=== PATIENT | female | born 1985 | race Two or more races ===

== ENCOUNTER 2017-12-27 20:32 | Emergency (ER) | payer MEDICAID ==
--- NOTE | 2017-12-27 20:49 | EDPHY ---
H & P Time Seen by Provider: 12/27/17 20:48 HPI/ROS: CHIEF COMPLAINT: Lower abdominal pain HISTORY OF PRESENT ILLNESS: Patient is 32-year-old female with a history of chronic pelvic pain secondary to endometriosis presenting with 1 week of worsening pelvic pain. She states she is just finishing her period and typically she has intense pain during the entirety of her. Then it starts to taper off. She states she finished her period yesterday and the pain has persisted. She is taking Motrin and Tylenol without complete relief of pain. She denies any fever or chills or flank pain. Her period was in timing with her normal monthly. She also reports diarrhea and vomiting. She has no sick contacts. She reports a history of 5 prior laparoscopies for endometriosis. REVIEW OF SYSTEMS: Constitutional: No fever, no chills. Eyes: No discharge. ENT: No sore throat. Cardiovascular: No chest pain, no palpitations. Respiratory: No cough, no shortness of breath. Gastrointestinal: + abdominal pain, + vomiting. Genitourinary: No hematuria. Musculoskeletal: No back pain. Skin: No rashes. Neurological: No headache. Smoking Status: Never smoked Physical Exam: General Appearance: Alert and no distress. Eyes: Pupils equal and round no injection. Respiratory: Chest is nontender, lungs are clear to auscultation. Cardiac: regular rate and rhythm. Gastrointestinal: Abdomen is soft and with tenderness to the suprapubic and left adnexal region. No right lower quadrant tenderness. no masses, bowel sounds normal. Musculoskeletal: Neck is supple and nontender. Extremities have full range of motion and are nontender. Skin: No rashes or lesions. Constitutional: Initial Vital Signs Temperature (C) 36.8 C 12/27/17 20:36 Heart Rate 64 12/27/17 20:36 Respiratory Rate 16 12/27/17 20:36 Blood Pressure 113/64 12/27/17 20:36 O2 Sat (%) 97 12/27/17 20:36 O2 Delivery Mode Room Air Allergies/Adverse Reactions: ciprofloxacin [From Cipro] Allergy (Verified 12/27/17 20:38) Medical Decision Making - Diagnostics Imaging Results: Imaging Impressions Pelvic/Renal Ultrasound 12/27/17 21:02 Impression: Basically normal pelvic ultrasound for the patient's age. Findings and recommendations discussed with Messi Marino PA-C, at 10:00 p.m., on December 27, 2017. Final report concurs with initial preliminary interpretation. ED Course/Re-evaluation: 32-year-old female here with history of chronic pelvic pain secondary to endometriosis found to be afebrile with unremarkable labs and ultrasound showing no acute process. She does feel improved after IV fluids, Toradol and morphine. She was discharge with a small amount of the medication and given socket welder helper follow-up. Patient is agreeable with this plan. Differential Diagnosis: Ovarian torsion, appendicitis, UTI, uterine fibroids, ovarian cyst, diverticulitis - Data Points Laboratory Results: Laboratory Results 12/27/17 20:50 12/27/17 20:50 12/27/17 12/27/17 12/27/17 22:23 20:50 20:50 WBC RBC Hgb Hct MCV MCH MCHC RDW Plt Count MPV Neut % (Auto) Lymph % (Auto) [place] % (Auto) Eos % (Auto) Baso % (Auto) Nucleat RBC Rel Count Absolute Neuts (auto) Absolute Lymphs (auto) Absolute Monos (auto) Absolute Eos (auto) Absolute Basos (auto) Absolute Nucleated RBC Immature Gran % Immature Gran # Sodium 139 mEq/L mEq/L (135-145) Potassium 4.5 mEq/L mEq/L (3.3-5.0) Chloride 106 mEq/L mEq/L (97-110) Carbon Dioxide 26 mEq/l mEq/l (22-31) Anion Gap 7 mEq/L L mEq/L (8-16) BUN 14 mg/dL mg/dL (7-23) Creatinine 0.7 mg/dL mg/dL (0.6-1.0) Estimated GFR > 60 Glucose 88 mg/dL mg/dL (70-100) Calcium 9.5 mg/dL mg/dL (8.5-10.4) Total Bilirubin 0.2 mg/dL mg/dL (0.1-1.4) AST 22 IU/L IU/L (14-46) ALT 32 IU/L IU/L (9-52) Alkaline Phosphatase 66 IU/L IU/L (38-126) Total Protein 6.7 g/dL g/dL (6.3-8.2) Albumin 3.8 g/dL g/dL (3.5-5.0) Lipase 196 IU/L IU/L (23-300) Beta HCG, Qual NEGATIVE Urine Color COLORLESS Urine Appearance CLEAR Urine pH 6.0 (5.0-7.5) Ur Specific [place] 1.001 L (1.002-1.030) Urine Protein NEGATIVE (NEGATIVE) Urine Ketones NEGATIVE (NEGATIVE) Urine Blood NEGATIVE (NEGATIVE) Urine Nitrate NEGATIVE (NEGATIVE) Urine Bilirubin NEGATIVE (NEGATIVE) Urine Urobilinogen NEGATIVE EU EU (0.2-1.0) Ur Leukocyte Esterase NEGATIVE (NEGATIVE) Urine Glucose NEGATIVE (NEGATIVE) 12/27/17 20:50 WBC 10.71 10^3/uL H 10^3/uL (3.80-9.50) RBC 4.56 10^6/uL 10^6/uL (4.18-5.33) Hgb 13.4 g/dL g/dL (12.6-16.3) Hct 40.2 % % (38.0-47.0) MCV 88.2 fL fL (81.5-99.8) MCH 29.4 pg pg (27.9-34.1) MCHC 33.3 g/dL g/dL (32.4-36.7) RDW 14.0 % % (11.5-15.2) Plt Count 332 10^3/uL 10^3/uL (150-400) MPV 10.2 fL fL (8.7-11.7) Neut % (Auto) 54.1 % % (39.3-74.2) Lymph % (Auto) 34.2 % % (15.0-45.0) [place] % (Auto) 7.8 % % (4.5-13.0) Eos % (Auto) 3.0 % % (0.6-7.6) Baso % (Auto) 0.6 % % (0.3-1.7) Nucleat RBC Rel Count 0.0 % % (0.0-0.2) Absolute Neuts (auto) 5.80 10^3/uL 10^3/uL (1.70-6.50) Absolute Lymphs (auto) 3.66 10^3/uL H 10^3/uL (1.00-3.00) Absolute Monos (auto) 0.84 10^3/uL H 10^3/uL (0.30-0.80) Absolute Eos (auto) 0.32 10^3/uL 10^3/uL (0.03-0.40) Absolute Basos (auto) 0.06 10^3/uL 10^3/uL (0.02-0.10) Absolute Nucleated RBC 0.00 10^3/uL 10^3/uL (0-0.01) Immature Gran % 0.3 % % (0.0-1.1) Immature Gran # 0.03 10^3/uL 10^3/uL (0.00-0.10) Sodium Potassium Chloride Carbon Dioxide Anion Gap BUN Creatinine Estimated GFR Glucose Calcium Total Bilirubin AST ALT Alkaline Phosphatase Total Protein Albumin Lipase Beta HCG, Qual Urine Color Urine Appearance Urine pH Ur Specific [place] Urine Protein Urine Ketones Urine Blood Urine Nitrate Urine Bilirubin Urine Urobilinogen Ur Leukocyte Esterase Urine Glucose Medications Given: Discontinued Medications Hydrocodone Bitart/Acetaminophen ([place] 5/325mg Prepack#6) 1 btl TAKEHOME EDNOW ONE Stop: 12/27/17 23:41 Last Admin: 12/27/17 23:47 Dose: 1 btl Sodium Chloride (Ns) 1,000 mls @ 0 mls/hr IV EDNOW ONE; Wide Open PRN Reason: Protocol Stop: 12/27/17 21:03 Last Admin: 12/27/17 21:07 Dose: 1,000 mls Ketorolac Tromethamine (Toradol) 15 mg IVP EDNOW ONE Stop: 12/27/17 21:04 Last Admin: 12/27/17 21:10 Dose: 15 mg Morphine Sulfate (Morphine) 4 mg IVP Q1H PRN PRN Reason: Pain, Severe Unable to Take PO Last Admin: 12/27/17 21:10 Dose: 4 mg Promethazine HCl (Phenergan) 12.5 mg IVP ONCE ONE Stop: 12/27/17 21:04 Last Admin: 12/27/17 21:07 Dose: 12.5 mg Departure - Departure Disposition: Home, Routine, Self-Care Clinical Impression: Endometriosis Condition: Good Instructions: Hydrocodone/Acetaminophen (By mouth), Narcotic-Analgesic/ Acetaminophen (By mouth), Endometriosis (ED), Pelvic Pain in Women (ED) Additional Instructions: The source of her pain is unclear the this is likely exacerbation of her chronic pelvic pain and endometriosis. Giving him the number for socket welder helper. Please call them tomorrow morning for follow-up within the next 3-5 days. Return to the ER for fever any worsening symptoms. Referrals: NONE *PRIMARY CARE P,. [Primary Care Provider] - As per Instructions Heather Samuels MD [Medical Doctor] - As per Instructions
[2017-12-27] MEDS ORDERED: NS 1,000 ML IV ONE (21:02)
[2017-12-27] MEDS ORDERED: KETOROLAC 15 MG/1 ML SDV IVP ONE (21:03)
[2017-12-27] MEDS ORDERED: PROMETHAZINE HCL 25 MG/ML INJ IVP ONE (21:03)
[2017-12-27 21:06] LABS: PLATELET COUNT 332 10^3/uL (150-400)
[2017-12-27] MEDS ORDERED: HYDROCOD/APAP 5/325 PREPACK#6 BTL TAKEHOME ONE (23:40)
[2017-12-27 23:53] VITALS: BP 111/78
== END 2017-12-27 23:53 | disposition home or self-care (01) ==
DX: N80.9 Endometriosis, unspecified (principal); E86.9 Volume depletion, unspecified
CPT/HCPCS: 96374; J1885; J2270; J2550

== ENCOUNTER 2018-01-15 16:13 | Emergency (ER) | payer MEDICAID ==
--- NOTE | 2018-01-15 16:40 | EDPHY ---
H & P Time Seen by Provider: 01/15/18 16:33 HPI/ROS: CHIEF COMPLAINT: Lower abdominal pain HISTORY OF PRESENT ILLNESS: Patient is a 32-year-old female with a history of endometriosis and multiple previous pelvic surgery who presents emergency department with severe lower pelvic pain. Patient states that she has been gradually having worse. Symptoms each month. Her period started today and she has increasing suprapubic pain. She denies fevers or chills. No nausea or vomiting. Patient has had mild dysuria and frequency. The patient reports this is similar to her previous episodes of endometriosis. Patient also reports that she has previously had an ovarian torsion. REVIEW OF SYSTEMS: 10 systems were reveiwed and are negative with the exception of the elements mentioned in the history of present illness. Past Medical/Surgical History: Includes ovarian torsion, endometriosis, urinary tract infection, uterine fibroids, ovarian cyst, diverticulitis Past surgical history: Patient has multiple laparoscopic procedures. Patient denies having a previous appendicitis or having her appendix removed. This was noted on a previous record. Social history: Patient does not smoke Smoking Status: Never smoked Physical Exam: Vitals noted GENERAL: Well-appearing, in no acute distress, alert. HEENT: Eyes normal to inspection, normal pharynx, no signs of dehydration. NECK: Normal, supple. RESPIRATORY: Clear to auscultation bilaterally, no rales, rhonchi or wheezing. CVS: Regular rate and rhythm, no rubs, murmurs, or gallops. ABDOMEN: Soft, suprapubic tenderness to palpation with no rebound or guarding. Left lower quadrant tenderness palpation with no rebound or guarding. Nondistended, no organomegaly. BACK: Normal to inspection, no CVA tenderness. SKIN: Normal color, no rash, warm, dry. No pallor. EXTREMITIES: No pedal edema, no calf tenderness, no joint swelling. NEURO/PSYCH: Alert and oriented, normal mood and affect, normal motor sensory exam. Constitutional: Initial Vital Signs Temperature (C) 36.6 C 01/15/18 16:18 Heart Rate 64 01/15/18 16:18 Respiratory Rate 16 01/15/18 16:18 Blood Pressure 120/49 L 01/15/18 16:18 O2 Sat (%) 100 01/15/18 16:18 O2 Delivery Mode Room Air Allergies/Adverse Reactions: aloe Allergy (Verified 01/15/18 16:17) ciprofloxacin [From Cipro] Allergy (Verified 01/15/18 16:17) gluten Allergy (Verified 01/15/18 16:17) Home Medications: Medication Instructions Recorded Azithromycin 01/15/18 Flovent 44 MCG Hfa MDI (*) 01/15/18 Hydrocodone/APAP 5/325 [[place] 1 - 2 tab PO Q4 #11 tab 01/15/18 5/325 (RX)] Proair Hfa 01/15/18 Promethazine HCl [Phenergan 25mg 25 mg PO Q6 #7 tab 01/15/18 (*)] Proventil Neb 01/15/18 Medical Decision Making - Diagnostics Imaging Results: Imaging Impressions Pelvic/Renal Ultrasound 01/15/18 17:05 Impression: There is no sonographic explanation for the patient's pelvic pain. Findings were discussed with MIGUEL VAZQUEZ MD at 18:29, on 01/15/2018. Abdomen/Pelvis CT 01/15/18 18:38 Impression: No acute abdominopelvic process. Findings and recommendations discussed with MIGUEL VAZQUEZ at 1908 hour, . ED Course/Re-evaluation: In the emergency department I discussed possible etiologies with the patient. I answered all her questions. IV was placed. Patient was given Dilaudid 0.5 mg IV for pain. She is given Zofran 4 mg IV for pain. Patient was given 30 mg toradol IV. Patient was given repeat dose of Dilaudid. I rechecked the patient. She stated her pain had improved but she was still complaining of nausea. Ultrasound: Normal flow to both ovaries. Small right-sided ovarian cyst. No other abnormality noted. Patient was noted to have blood in her urine. She is on her menses. However, the patient still has abdominal pain. Because of this CT scan was ordered. Abdominal pelvic CT: Please refer the dictated report. No acute disease noted. Discussed the results with the patient. I answered all her questions. She was feeling better. She was given warnings prior to leaving. She will return with worsening symptoms. Differential Diagnosis: My differential includes but is not limited to ovarian cyst, ovarian torsion, , ectopic , endometriosis, appendicitis, small-bowel obstruction, perforation, diverticulitis, urinary tract infection, pyelonephritis - Data Points Laboratory Results: Laboratory Results 01/15/18 17:20 01/15/18 17:20 01/15/18 01/15/18 01/15/18 17:20 17:20 17:20 WBC 12.79 10^3/uL H 10^3/uL (3.80-9.50) RBC 4.86 10^6/uL 10^6/uL (4.18-5.33) Hgb 14.2 g/dL g/dL (12.6-16.3) Hct 42.1 % % (38.0-47.0) MCV 86.6 fL fL (81.5-99.8) MCH 29.2 pg pg (27.9-34.1) MCHC 33.7 g/dL g/dL (32.4-36.7) RDW 13.5 % % (11.5-15.2) Plt Count 332 10^3/uL 10^3/uL (150-400) MPV 10.8 fL fL (8.7-11.7) Neut % (Auto) 56.3 % % (39.3-74.2) Lymph % (Auto) 33.5 % % (15.0-45.0) [place] % (Auto) 7.3 % % (4.5-13.0) Eos % (Auto) 2.2 % % (0.6-7.6) Baso % (Auto) 0.5 % % (0.3-1.7) Nucleat RBC Rel Count 0.0 % % (0.0-0.2) Absolute Neuts (auto) 7.21 10^3/uL H 10^3/uL (1.70-6.50) Absolute Lymphs (auto) 4.28 10^3/uL H 10^3/uL (1.00-3.00) Absolute Monos (auto) 0.93 10^3/uL H 10^3/uL (0.30-0.80) Absolute Eos (auto) 0.28 10^3/uL 10^3/uL (0.03-0.40) Absolute Basos (auto) 0.07 10^3/uL 10^3/uL (0.02-0.10) Absolute Nucleated RBC 0.00 10^3/uL 10^3/uL (0-0.01) Immature Gran % 0.2 % % (0.0-1.1) Immature Gran # 0.02 10^3/uL 10^3/uL (0.00-0.10) Sodium 142 mEq/L mEq/L (135-145) Potassium 3.6 mEq/L mEq/L (3.3-5.0) Chloride 107 mEq/L mEq/L (97-110) Carbon Dioxide 25 mEq/l mEq/l (22-31) Anion Gap 10 mEq/L mEq/L (6-14) BUN 8 mg/dL mg/dL (7-23) Creatinine 0.7 mg/dL mg/dL (0.6-1.0) Estimated GFR > 60 Glucose 76 mg/dL mg/dL (70-100) Calcium 9.9 mg/dL mg/dL (8.5-10.4) Beta HCG, Qual NEGATIVE Urine Color Urine Appearance Urine pH Ur Specific [place] Urine Protein Urine Ketones Urine Blood Urine Nitrate Urine Bilirubin Urine Urobilinogen Ur Leukocyte Esterase Urine RBC Urine WBC Ur Epithelial Cells Urine Mucus Urine Glucose 01/15/18 16:25 WBC RBC Hgb Hct MCV MCH MCHC RDW Plt Count MPV Neut % (Auto) Lymph % (Auto) [place] % (Auto) Eos % (Auto) Baso % (Auto) Nucleat RBC Rel Count Absolute Neuts (auto) Absolute Lymphs (auto) Absolute Monos (auto) Absolute Eos (auto) Absolute Basos (auto) Absolute Nucleated RBC Immature Gran % Immature Gran # Sodium Potassium Chloride Carbon Dioxide Anion Gap BUN Creatinine Estimated GFR Glucose Calcium Beta HCG, Qual Urine Color PALE YELLOW Urine Appearance CLEAR Urine pH 6.0 (5.0-7.5) Ur Specific [place] 1.006 (1.002-1.030) Urine Protein NEGATIVE (NEGATIVE) Urine Ketones TRACE H (NEGATIVE) Urine Blood 2+ H (NEGATIVE) Urine Nitrate NEGATIVE (NEGATIVE) Urine Bilirubin NEGATIVE (NEGATIVE) Urine Urobilinogen NEGATIVE EU EU (0.2-1.0) Ur Leukocyte Esterase NEGATIVE (NEGATIVE) Urine RBC 25-50 /hpf H /hpf (0-3) Urine WBC 3-5 /hpf H /hpf (0-3) Ur Epithelial Cells TRACE /lpf /lpf (NONE-1+) Urine Mucus TRACE /lpf /lpf (NONE-1+) Urine Glucose NEGATIVE (NEGATIVE) Medications Given: Discontinued Medications Hydromorphone HCl (Dilaudid) 5 mg IVP EDNOW ONE Stop: 01/15/18 17:07 Last Admin: 01/15/18 18:22 Dose: Not Given Hydromorphone HCl (Dilaudid) 0.5 mg IVP EDNOW ONE Stop: 01/15/18 18:22 Last Admin: 01/15/18 17:30 Dose: 0.5 mg Hydromorphone HCl (Dilaudid) 0.5 mg IVP EDNOW ONE Stop: 01/15/18 18:24 Last Admin: 01/15/18 18:15 Dose: 0.5 mg Sodium Chloride (Ns) 1,000 mls @ 0 mls/hr IV ONCE ONE; Wide Open PRN Reason: Protocol Stop: 01/15/18 17:06 Last Admin: 01/15/18 17:30 Dose: 1,000 mls Ketorolac Tromethamine (Toradol) 30 mg IVP EDNOW ONE Stop: 01/15/18 17:06 Last Admin: 01/15/18 17:30 Dose: 30 mg Ondansetron HCl (Zofran) 4 mg IVP EDNOW ONE Stop: 01/15/18 17:06 Last Admin: 01/15/18 17:30 Dose: 4 mg Ondansetron HCl (Zofran) 4 mg IVP EDNOW ONE Stop: 01/15/18 18:39 Last Admin: 01/15/18 18:42 Dose: 4 mg Departure - Departure Disposition: Home, Routine, Self-Care Clinical Impression: Abdominal pain Qualifiers: Abdominal location: lower abdomen, unspecified Qualified Code(s): R10.30 - Lower abdominal pain, unspecified Condition: Good Instructions: Acute Abdominal Pain (ED) Additional Instructions: Return with increasing pain, vomiting, fever, or any other concerns. Referrals: Thais Britt MD [Medical Doctor] - 5-7 days, call for appt. Prescriptions: Hydrocodone/APAP 5/325 [[place] 5/325 (RX)] 1 - 2 tab PO Q4 #11 tab Promethazine HCl [Phenergan 25mg (*)] 25 mg PO Q6 #7 tab
[2018-01-15] MEDS ORDERED: KETOROLAC 30 MG/1 ML SDV IVP ONE (17:05)
[2018-01-15] MEDS ORDERED: NS 1,000 ML IV ONE (17:05)
[2018-01-15] MEDS ORDERED: ONDANSETRON 4 MG/2 ML VIAL IVP ONE ×2 (17:05→18:38)
[2018-01-15] MEDS ORDERED: HYDROmorphONE/DILAUDID 2 MG/ML INJ IVP ONE ×3 (17:06→18:23)
[2018-01-15] MEDS ORDERED: HYDROmorphONE/DILAUDID 1 MG/ML INJ ONE ×2 (17:11→18:15)
[2018-01-15 17:34] LABS: PLATELET COUNT 332 10^3/uL (150-400)
[2018-01-15] MEDS ORDERED: ONDANSETRON 4 MG/2 ML VIAL ONE (20:06)
[2018-01-15] MEDS ORDERED: PROMETHAZINE 25 MG PREPACK #4 BTL TAKEHOME ONE (20:17)
[2018-01-15] MEDS ORDERED: HYDROCOD/APAP 5/325 PREPACK#6 BTL TAKEHOME ONE (20:17)
[2018-01-15 20:51] VITALS: BP 128/72
== END 2018-01-15 20:53 | disposition home or self-care (01) ==
DX: R10.2 Pelvic and perineal pain (principal); N83.201 Unspecified ovarian cyst, right side; E86.9 Volume depletion, unspecified; Z87.42 Personal history of other diseases of the female genital tract
CPT/HCPCS: 96374; J1170; J1885; J2405

== ENCOUNTER 2018-03-14 15:16 | Emergency (ER) | payer MEDICAID ==
[2018-03-14] MEDS ORDERED: HALOPERIDOL LACT 5 MG/ML INJ IVP ONE (16:55)
[2018-03-14] MEDS ORDERED: NS 1,000 ML IV ONE ×2 (16:55)
--- NOTE | 2018-03-14 16:55 | EDPHY ---
H & P Stated Complaint: generalized abd pain/hx chronic pain/endometriosis Time Seen by Provider: 03/14/18 16:47 HPI/ROS: HPI: This is a 32-year-old female who presents with Chief Complaint: generalized abd pain/hx chronic pain/endometriosis Location: pelvic Quality: pain Duration: 2-3 days Signs and Symptoms: no fever,+ nausea, no vomiting, no hematemesis, no blood in stool, no abdominal bloating, no diarrhea, no back pain, no urinary symptoms, no vaginal discharge, no indigestion, no chest pain, no shortness of breath Timing: Acute on chronic Severity: 01/09 Context: Patient has a history of endometriosis, followed by Dr. Farhat Contreras, with planned laparoscopic surgery May 01 presents with acute on chronic lower pelvic pain that started on with her menses. She reports that she had normal blood flow and her. lasted from to Sunday. Normally she has to take [place] 5 mg as well as Dilaudid 2 mg company by Phenergan to control her symptoms but is not helping over the last 2-3 days. She reports that she gets nauseous when she takes the medications. She denies any urinary symptoms, fever, back pain. She reports that this pain is similar to her prior occurrences. She called her OBGYN who is full today and is not in the office on Sunday. She has a few more pain medication pills at home but does admit that she has used significantly more this month in the last 2 months. LMP 1-7 days ago. Modifying Factors: See above Comment: ROS: A comprehensive 10 system review of systems is otherwise negative aside from elements mentioned in the history of present illness. MEDICAL/SURGICAL/SOCIAL HISTORY: Medical history: endometriosis, Migraines, RAD Surgical history: Denies Social history: . Never smoked. Family history noncontributory. CONSTITUTIONAL: Tearful, nontoxic-appearing, moderate distress, female , awake and alert HEENT: Atraumatic and normocephalic, PERRL, EOMI. Nares patent; no rhinorrhea; no nasal mucosal edema. Tympanic membranes clear. Oropharynx clear, no exudate and moist pink mucosa. Airway patent. No lymphadenopathy. No meningismus. Cardiovascular: Normal S1/S2, regular rate, regular rhythm, without murmur rub or gallop. PULMONARY/CHEST: Symmetrical and nontender. Clear to auscultation bilaterally. Good air movement. No accessory muscle usage. ABDOMEN: Soft, nondistended, moderate generalized lower abdominal reproducible tenderness, no rebound, no guarding, no peritoneal signs, no masses or organomegaly. No CVAT. Bowel sounds heard x4 quadrants EXTREMITIES: 2/2 pulses, strength 5/5, no deformities, no clubbing, no cyanosis or edema. NEUROLOGICAL: no focal neuro deficits. GCS 15. SKIN: Warm and dry, no erythema. no rash. Good capillary refill. Source: Patient, Old records Exam Limitations: No limitations - Personal History LMP (Females 10-55): 1-7 Days Ago Current Tetanus Diphtheria and Acellular Pertussis (TDAP): Yes Tetanus Vaccine Date: 2017 - Medical/Surgical History Hx Asthma: Yes Hx Chronic Respiratory Disease: No Hx Diabetes: No Hx Cardiac Disease: No Hx Renal Disease: No Hx Cirrhosis: No Hx Alcoholism: No Hx HIV/AIDS: No Hx Splenectomy or Spleen Trauma: No Other PMH: endometriosis Migraines RAD - Social History Smoking Status: Never smoked Constitutional: Initial Vital Signs Temperature (C) 36.7 C 03/14/18 15:31 Heart Rate 73 03/14/18 15:31 Respiratory Rate 16 03/14/18 15:31 Blood Pressure 121/89 H 03/14/18 15:31 O2 Sat (%) 98 03/14/18 15:31 O2 Delivery Mode Room Air Allergies/Adverse Reactions: aloe Allergy (Verified 03/14/18 15:30) ciprofloxacin [From Cipro] Allergy (Verified 03/14/18 15:30) gluten Allergy (Verified 03/14/18 15:30) ondansetron [From Zofran] Allergy (Verified 03/14/18 15:31) Home Medications: Medication Instructions Recorded Flovent 44 MCG Hfa MDI (*) 01/15/18 Hydrocodone/APAP 5/325 [[place] 1 - 2 tab PO Q4 #11 tab 01/15/18 5/325 (RX)] Proair Hfa 01/15/18 Promethazine HCl [Phenergan 25mg 25 mg PO Q6 #7 tab 01/15/18 (*)] Proventil Neb 01/15/18 Dilaudid 03/14/18 Vicodin 5-300 mg Tablet 03/14/18 Medical Decision Making - Diagnostics Imaging Results: Imaging Impressions Pelvic/Renal Ultrasound 03/14/18 16:56 Impression: No visible etiology for the patient's pain. Findings discussed with Galilea Osuna on 03/14/2018 at 17:58. ED Course/Re-evaluation: Vital signs reviewed and stable upon arrival. No systemic signs. IV access and laboratory studies along with pelvic ultrasound or urinalysis ordered Chart review shows that CT abdomen and pelvis scan was performed on 01/15/2018 was essentially unremarkable. Patient was given 2 L normal saline, IV Haldol 2.5 mg, IV Benadryl 25 mg Urinalysis is unremarkable. 1759: Called by radiologist, Dr. Chandra, who advises that pelvic ultrasound shows no ovarian torsion, no ectopic , no fibroids, no free fluid, there is good blood flow to both ovaries. 180: Notified by RN that pain has only improved one point to 9/10. Lidocaine drip ordered 1812: Labs reviewed. No signs of leukocytosis/anemia/platelet dysfunction/MARC/ electrolyte imbalance/. 1840: Patient ambulating to the bathroom without assistance or difficulty. 1940: Reassessed patient who reports complete relief of pain with lidocaine drip. Abdomen is soft and nontender. Reports that she does not have enough pain medications to make it through the weekend. I advised her that she can call her OBGYN who manages her chronic pain from endometriosis office tomorrow. She is able to be seen by her OBGYN on Sunday. This patient was seen under the supervision of my secondary supervising physician. I evaluated care for this patient independently. Discussed this patient with Dr. Reaves who did not see the patient. Differential Diagnosis: Abdominal pain in a female including but not limited to ovarian cyst, pelvic inflammatory disease, ovarian torsion, urinary tract infection, and appendicitis. - Data Points Laboratory Results: Laboratory Results 03/14/18 17:23 03/14/18 17:23 03/14/18 03/14/18 03/14/18 17:23 17:23 17:23 WBC 10.35 10^3/uL H 10^3/uL (3.80-9.50) RBC 4.33 10^6/uL 10^6/uL (4.18-5.33) Hgb 12.6 g/dL g/dL (12.6-16.3) Hct 37.8 % L % (38.0-47.0) MCV 87.3 fL fL (81.5-99.8) MCH 29.1 pg pg (27.9-34.1) MCHC 33.3 g/dL g/dL (32.4-36.7) RDW 14.8 % % (11.5-15.2) Plt Count 323 10^3/uL 10^3/uL (150-400) MPV 10.4 fL fL (8.7-11.7) Neut % (Auto) 62.5 % % (39.3-74.2) Lymph % (Auto) 25.5 % % (15.0-45.0) [place] % (Auto) 8.0 % % (4.5-13.0) Eos % (Auto) 3.2 % % (0.6-7.6) Baso % (Auto) 0.5 % % (0.3-1.7) Nucleat RBC Rel Count 0.0 % % (0.0-0.2) Absolute Neuts (auto) 6.47 10^3/uL 10^3/uL (1.70-6.50) Absolute Lymphs (auto) 2.64 10^3/uL 10^3/uL (1.00-3.00) Absolute Monos (auto) 0.83 10^3/uL H 10^3/uL (0.30-0.80) Absolute Eos (auto) 0.33 10^3/uL 10^3/uL (0.03-0.40) Absolute Basos (auto) 0.05 10^3/uL 10^3/uL (0.02-0.10) Absolute Nucleated RBC 0.00 10^3/uL 10^3/uL (0-0.01) Immature Gran % 0.3 % % (0.0-1.1) Immature Gran # 0.03 10^3/uL 10^3/uL (0.00-0.10) Sodium 140 mEq/L mEq/L (135-145) Potassium 4.3 mEq/L mEq/L (3.5-5.2) Chloride 108 mEq/L mEq/L (97-110) Carbon Dioxide 23 mEq/l mEq/l (22-31) Anion Gap 9 mEq/L mEq/L (6-14) BUN 13 mg/dL mg/dL (7-23) Creatinine 0.6 mg/dL mg/dL (0.6-1.0) Estimated GFR > 60 Glucose 83 mg/dL mg/dL (70-100) Calcium 9.1 mg/dL mg/dL (8.5-10.4) Beta HCG, Qual NEGATIVE Urine Color Urine Appearance Urine pH Ur Specific [place] Urine Protein Urine Ketones Urine Blood Urine Nitrate Urine Bilirubin Urine Urobilinogen Ur Leukocyte Esterase Urine Glucose 03/14/18 17:10 WBC RBC Hgb Hct MCV MCH MCHC RDW Plt Count MPV Neut % (Auto) Lymph % (Auto) [place] % (Auto) Eos % (Auto) Baso % (Auto) Nucleat RBC Rel Count Absolute Neuts (auto) Absolute Lymphs (auto) Absolute Monos (auto) Absolute Eos (auto) Absolute Basos (auto) Absolute Nucleated RBC Immature Gran % Immature Gran # Sodium Potassium Chloride Carbon Dioxide Anion Gap BUN Creatinine Estimated GFR Glucose Calcium Beta HCG, Qual Urine Color YELLOW Urine Appearance HAZY Urine pH 7.0 (5.0-7.5) Ur Specific [place] 1.006 (1.002-1.030) Urine Protein NEGATIVE (NEGATIVE) Urine Ketones NEGATIVE (NEGATIVE) Urine Blood NEGATIVE (NEGATIVE) Urine Nitrate NEGATIVE (NEGATIVE) Urine Bilirubin NEGATIVE (NEGATIVE) Urine Urobilinogen NEGATIVE EU EU (0.2-1.0) Ur Leukocyte Esterase NEGATIVE (NEGATIVE) Urine Glucose NEGATIVE (NEGATIVE) Medications Given: Discontinued Medications Diphenhydramine HCl (Benadryl Injection) 25 mg IVP EDNOW ONE Stop: 03/14/18 16:56 Last Admin: 03/14/18 17:27 Dose: 25 mg Haloperidol Lactate (Haldol Injection) 2.5 mg IVP EDNOW ONE Stop: 03/14/18 16:56 Last Admin: 03/14/18 17:26 Dose: 2.5 mg Sodium Chloride (Ns) 1,000 mls @ 0 mls/hr IV ONCE ONE; Wide Open PRN Reason: Protocol Stop: 03/14/18 16:56 Last Admin: 03/14/18 17:26 Dose: 1,000 mls Sodium Chloride (Ns) 1,000 mls @ 0 mls/hr IV ONCE ONE; Wide Open PRN Reason: Protocol Stop: 03/14/18 16:56 Last Admin: 03/14/18 17:28 Dose: 1,000 mls Lidocaine HCl 100 mg/ Sodium (Chloride) 110 mls @ 600 mls/hr IV EDNOW ONE Stop: 03/14/18 18:16 Last Admin: 03/14/18 18:41 Dose: 110 mls Departure - Departure Disposition: Home, Routine, Self-Care Clinical Impression: Chronic pelvic pain in female, Endometriosis Condition: Good Instructions: Endometriosis (ED), Pelvic Pain in Women (ED), Laparoscopic Hysterectomy (DC) Additional Instructions: Consume a minimum of 8-10 glasses of water or electrolyte fluid replacement drinks that include Gatorade, Powerade, Pedialyte. Eat a bland diet for the next 48 hours and then slowly advance as tolerated. Take pain medications as prescribed by Dr. Contreras. Please call Dr. Contreras's office tomorrow to discuss refill of pain medications an appointment to be seen within the next 3-5 days. Referrals: Keo Contreras MD [Medical Doctor] - As per Instructions Stand Alone Forms: Work Excuse
[2018-03-14 17:42] LABS: PLATELET COUNT 323 10^3/uL (150-400)
[2018-03-14] MEDS ORDERED: LIDOCAINE 1% 100 MG in NS 100 ML IV ONE (18:06)
[2018-03-14 19:58] VITALS: BP 128/76
== END 2018-03-14 19:58 | disposition home or self-care (01) ==
DX: R10.2 Pelvic and perineal pain (principal); N80.9 Endometriosis, unspecified; E86.9 Volume depletion, unspecified
CPT/HCPCS: 96374; J1200; J1630

== ENCOUNTER 2018-05-01 05:35 | Observation (INO) | payer MEDICAID ==
[2018-05-01] MEDS ORDERED: PHENAZOPYRIDINE HCL 200 MG TAB PO ONE (05:59)
[2018-05-01] MEDS ORDERED: ACETAMINOPHEN 500 MG TAB PO ONE (05:59)
[2018-05-01] MEDS ORDERED: ceFAZolin 2 GM/DEXTROSE 100 ML IV ONE (05:59)
[2018-05-01] MEDS ORDERED: GABAPENTIN 300 MG CAP PO ONE (05:59)
[2018-05-01] MEDS ORDERED: LR 1,000 ML IV ONE (06:02)
[2018-05-01] MEDS ORDERED: MIDAZOLAM 2 MG/2 ML VIAL IVP ONE ×2 (06:44→11:02)
--- NOTE | 2018-05-01 06:44 | PDANEPAE ---
ANE Past Medical History - Cardiovascular History Hx Hypertension: No Hx Arrhythmias: No Hx Chest Pain: No Hx Coronary Artery / Peripheral Vascular Disease: No Hx CHF / Valvular Disease: No Hx Palpitations: No Cardiovascular History Comment: BP runs low 119-120/? - Pulmonary History Hx COPD: No Hx Asthma/Reactive Airway Disease: Yes Hx Recent Upper Respiratory Infection: No Hx Oxygen in Use at Home: No Hx Sleep Apnea: No Sleep Apnea Screening Result - Last Documented: Negative - Neurologic History Hx Cerebrovascular Accident: No Hx Seizures: No Hx Dementia: No - Endocrine History Hx Diabetes: No Hypothyroid: No Hyperthyroid: No Obesity: no Endocrine History Comment: overweight - Renal History Hx Renal Disorders: No - Liver History Hx Hepatic Disorders: No - Neurological & Psychiatric Hx Hx Neurological and Psychiatric Disorders: Yes Neurological / Psychiatric History Comment: numbness to feet and toes. fingertip. migraines. depression/anxiety - Cancer History Hx Cancer: No - Congenital Disorder History Hx Congenital Disorders: Yes Congenital History Comment: type 2 DM - GI History GERD: mild Hx Gastrointestinal Disorders: Yes Gastrointestinal History Comment: acid reflux, celiac disease. constipation/ diarrhea - Other Health History Other Health History: mild nasal congestion. endometrosis - Chronic Pain History Chronic Pain: Yes (bilt hips) - Surgical History Prior Surgeries: endometrosis excision x4 ANE Review of Systems Review of Systems: - Exercise capacity Exercise capacity: <4 METS METS (RN): 3 METS ANE Patient History - Allergies Allergies/Adverse Reactions: aloe Allergy (Verified 04/12/18 12:23) Other-Enter Comments ciprofloxacin [From Cipro] Allergy (Verified 04/12/18 12:23) Other-Enter Comments gluten Allergy (Verified 04/12/18 12:23) Other-Enter Comments Iodinated Contrast- Oral and IV Dye Allergy (Verified 05/01/18 07:02) ondansetron [From Zofran] Allergy (Verified 04/12/18 12:23) Other-Enter Comments - Home Medications Home Medications: Flovent 44 MCG Hfa MDI (*) 01/15/18 [Last Taken Unknown] Proair Hfa 01/15/18 [Last Taken 1 Week Ago ~04/24/18] Proventil Neb 01/15/18 [Last Taken 05/01/18 04:00] Dilaudid 03/14/18 [Last Taken 05/01/18 04:30] Vicodin 5-300 mg Tablet 03/14/18 [Last Taken 05/01/18 04:30] Hydrocodone/APAP 5/325 [[place] 5/325 (RX)] 04/12/18 [Last Taken 05/01/18 04:30] Promethazine HCl [Phenergan 25mg (*)] 04/12/18 [Last Taken 05/01/18 04:30] Acetaminophen 1,000 mg PO 05/01/18 [Last Taken 05/01/18 04:30] Docusate Sodium [Colace Clear] 50 mg PO 05/01/18 [Last Taken 05/01/18 04:30] Naproxen 1,300 mg PO Q4 05/01/18 [Last Taken 04/30/18] - NPO status NPO Since - Liquids (Date): 05/01/18 NPO Since - Liquids (Time): 04:50 NPO Since - Solids (Date): 04/30/18 NPO Since - Solids (Time): 22:30 - Anes Hx Anes Hx: post operative nausea and vomiting - Smoking Hx Smoking Status: Former smoker Marijuana use: No - Alcohol Use Alcohol Use: Occasionally - Family Anes Hx Family Anes Hx: neg - N/A Family Hx Anesthesia Complications: none ANE Labs/Vital Signs - Labs Result Diagrams: 05/01/18 06:35 - Vital Signs Blood Pressure: 127/84 Heart Rate: 69 Respiratory Rate: 14 O2 Sat (%): 98 Height: 165.1 cm Weight: 78.471 kg ANE Physical Exam - Airway Neck exam: FROM Mallampati Score: Class 2 Mouth exam: normal dental/mouth exam - Pulmonary Pulmonary: no respiratory distress, no rales or rhonchi, clear to auscultation - Cardiovascular Cardiovascular: regular rate and rhythym, no murmur, rub, or gallop - ASA Status ASA Status: II ANE Anesthesia Plan Anesthesia Plan: general endotracheal anesthesia Total IV Anesthesia: No
[2018-05-01 06:53] LABS: PLATELET COUNT 382 10^3/uL (150-400)
--- NOTE | 2018-05-01 07:05 | PDHPUP ---
History & Physical Update H&P update statement: This history and physical update is based on an assessment of the patient which was completed after admission or registration (within 24 hours), but prior to the surgery/procedure. H&P update: H&P reviewed & patient examined, no change in patient's condition since H&P completed
[2018-05-01] MEDS ORDERED: SCOPOLAMINE HYDROBROMIDE 1 MG/3 DAYS PATCH TD ONE (07:07)
[2018-05-01] MEDS ORDERED: fentaNYL 100 MCG/2 ML INJ ONE ×2 (07:15→09:35)
[2018-05-01] MEDS ORDERED: PROPOFOL 200 MG/20 ML VIAL ONE (07:15)
[2018-05-01] MEDS ORDERED: REMIFENTANIL HCL 1 MG VIAL ONE ×2 (07:15→08:50)
[2018-05-01] MEDS ORDERED: PROPOFOL/EMULSION 500 MG/50 ML BOTTLE IV ONE ×2 (07:15→08:50)
[2018-05-01] MEDS ORDERED: KETOROLAC 30 MG/1 ML SDV ONE (07:16)
[2018-05-01] MEDS ORDERED: ROCURONIUM 50 MG/5 ML VIAL ONE (07:16)
[2018-05-01] MEDS ORDERED: LIDOCAINE 2% 5 ML SDV ONE (07:16)
[2018-05-01] MEDS ORDERED: DEXAMETHASONE 4 MG/ML VIAL ONE (07:16)
[2018-05-01] MEDS ORDERED: ONDANSETRON 4 MG/2 ML VIAL ONE (07:16)
[2018-05-01] MEDS ORDERED: RANITIDINE 50 MG/2 ML VIAL ONE (07:18)
[2018-05-01] MEDS ORDERED: PHENYLEPHRINE HCL 100 MCG/ML SYR ONE (07:44)
[2018-05-01] MEDS ORDERED: HYDROCODONE/APAP 5/325 TAB PO PRN ×2 (07:48→13:34)
[2018-05-01] MEDS ORDERED: LR 500 ML IV PRN (07:48)
[2018-05-01] MEDS ORDERED: ACETAMINOPHEN 500 MG TAB PO PRN (07:48)
[2018-05-01] MEDS ORDERED: PHENYLEPHRINE HCL 100 MCG/ML SYR IVP PRN (07:48)
[2018-05-01] MEDS ORDERED: ONDANSETRON 4 MG/2 ML VIAL IVP PRN ×2 (07:48→13:35)
[2018-05-01] MEDS ORDERED: NALOXONE HCL 0.4 MG/ML INJ IVP PRN (07:48)
[2018-05-01] MEDS ORDERED: SCOPOLAMINE HYDROBROMIDE 1 MG/3 DAYS PATCH TD SCH (08:00)
[2018-05-01] MEDS ORDERED: NEOSTIGMINE METHYLSULFATE 5 MG/5 ML SYR ONE (08:59)
[2018-05-01] MEDS ORDERED: GLYCOPYRROLATE 0.2 MG/1 ML VIAL ONE ×2 (08:59)
--- NOTE | 2018-05-01 09:10 | POSTOPPROG ---
Post Op Note Date of Operation: 05/01/18 Surgeon: Keo Contreras Office Technology Instructor: Demi Black Anesthesia: GET(General Endotracheal) Pre-op Diagnosis: Endometriosis Post-op Diagnosis: Same Procedure: Robotic excision of endo, rectal lesion, bilat ureterolysis, tubal study` Findings: Endo, Patent tubes bilat Inf/Abcess present in the surg proc area at time of surgery?: No EBL: Minimal Complications: None
[2018-05-01] MEDS ORDERED: MEPERIDINE 25 MG/0.5 ML AMP IVP PRN (09:22)
[2018-05-01] MEDS: fentaNYL 100 MCG/2 ML INJ IVP PRN ×2 (09:37→09:43)
[2018-05-01] MEDS ORDERED: MEPERIDINE 25 MG/0.5 ML AMP ONE (09:40)
[2018-05-01] MEDS ORDERED: PROMETHAZINE HCL 25 MG/ML INJ IVP PRN ×2 (09:49→13:34)
[2018-05-01] MEDS ORDERED: DIAZEPAM 5 MG/ML 1 ML SYR IVP PRN (09:49)
[2018-05-01] MEDS ORDERED: PROMETHAZINE HCL 25 MG/ML INJ ONE (09:50)
[2018-05-01] MEDS ORDERED: DIAZEPAM 5 MG/ML 1 ML SYR ONE (09:50)
--- NOTE | 2018-05-01 10:21 | POSTANESTH ---
Post Anesthetic Evaluation Cardiovascular Status: Normal, Stable Respiratory Status: Normal, Stable Level of Consciousness/Mental Status: Can Participate in Eval Pain Control: Adequate, Prn Tx Ordered Nausea/Vomiting Control: Inadeq, Add Tx Reqired Complications Possibly Related to Anesthesia: None Noted
[2018-05-01] MEDS ORDERED: HYDROmorphONE/DILAUDID 2 MG/ML INJ ONE ×3 (10:27→12:21)
[2018-05-01] MEDS ORDERED: oxyCODONE IR 5 MG TAB ONE ×2 (10:27→12:21)
[2018-05-01] MEDS: oxyCODONE IR 5 MG TAB PO PRN ×3 (10:29→20:04)
[2018-05-01] MEDS: HYDROmorphONE/DILAUDID 2 MG/ML INJ IVP PRN ×15 (10:30→12:50)
--- NOTE | 2018-05-01 10:31 | GOP ---
[f rep st] OPERATIVE REPORT DATE OF OPERATION: 05/01/2018 SURGEON: Keo Contreras MD WILDLIFE CONTROL AGENT: Demi Black CFA. ANESTHESIA: General. PREOPERATIVE DIAGNOSIS: 1. Endometriosis. 2. Dysmenorrhea. 3. Dyschezia. 4. Midcycle pain. POSTOPERATIVE DIAGNOSIS: 1. Endometriosis. 2. Dysmenorrhea. 3. Dyschezia. 4. Midcycle pain. PROCEDURE PERFORMED: 1. Robotic excision of extensive endometriosis in the anterior and posterior cul-de-sac, bilateral p elvic sidewalls. 2. Bilateral ureterolysis. 3. Bilateral ovarian pexy. 4. Excision of rectal lesion. 5. Excision of sigmoid lesion. 6. Chromotubation. FINDINGS: SPECIMENS: 1. Pelvic peritoneum with endometriosis. 2. Rectal lesion. 1. Sigmoid lesion. 3. ESTIMATED BLOOD LOSS: Scant. DESCRIPTION OF PROCEDURE: The patient was taken to the operating room where she was identified. Gen eral anesthesia was administered and found to be adequate. She was placed in the lithotomy position and prepared and draped in normal sterile fashion. A Rivera catheter was placed in her bladder. A Hu lka tenaculum was placed in the uterus for manipulation. A 1 cm infraumbilical incision was made with a scalpel. The Veress needle with the CO2 gas flowing w as advanced into the peritoneal cavity. The abdomen was then insufflated with carbon dioxide gas. T he 12 mm trocar followed by the laparoscope were then inserted. The upper abdomen was unremarkable. There was no evidence of any endometriosis on either diaphragm, liver, stomach, gallbladder, or uppe r abdominal bowel. Two lateral ports were placed in the right, 1 on the left, under direct visualiza tion. She then was placed in Trendelenburg position and the da Niurka robot docked on the left side. The instruments were then brought into the abdominal cavity under direct visualization. Within the pelvis, she had a moderate amount of lesions in the anterior cul-de-sac. The rectum was d ensely adherent to the posterior lower uterine segment, cervix, and bilateral uterosacral ligaments d ue to a nodule on the rectum. She had a smaller lesion on the sigmoid. The left ovary was somewhat small, possibly from prior surgical procedure. She had lesions in the posterior cul-de-sac and bilat eral pelvic sidewalls as well as several lesions on each ovary. She only had 2 small lesions on the uterine serosa. The anterior cul-de-sac peritoneum was completely excised. The lesions on the ovaries were treated. A bilateral ovariopexy was then performed, given her midcycle pain. Each ovary was attached to the ipsilateral round ligaments near the internal inguinal rings with 3-0 Vicryl Rapide suture. The rect um was gently dissected off the lower uterine segment and cervix. A rectal probe had been placed to help in identification. A thickened nodular lesion was excised from the distal rectum and also the l ower uterine segment of the uterus. It was sent to Pathology as a separate section. She had a small lesion on the sigmoid colon, which was likewise excised. Both of these extended approximately 30% t hrough the muscularis. The patient required a bilateral ureterolysis, given the endometriosis involv ing both ureters as well as the previous scarring. The peritoneum at the pelvic brims was incised. The ureters were gently dissected free and lateralized off the overlying peritoneum and endometriosis from the pelvic brim down to the uterine arteries. Once this was accomplished, the entire pelvic si dewall peritoneum was completely excised. The posterior cul-de-sac peritoneum was excised as well. The pelvis was then irrigated with sterile saline, and hemostasis was present. A tubal perfusion renata dy was performed using methylene blue. Both tubes spilled blue dye without evidence of any obstructi on. The robot was then undocked. The fascia was closed with 0 Vicryl, skin with 4-0 Monocryl. Anes thesia was reversed. The patient taken the PACU awake, in stable condition. COMPLICATIONS: None. DISPOSITION: Patient stable to PACU. /[id number]/MODL
[2018-05-01] MEDS ORDERED: MIDAZOLAM 2 MG/2 ML VIAL ONE (10:57)
[2018-05-01] MEDS ORDERED: KETOROLAC 15 MG/1 ML SDV ONE (10:57)
[2018-05-01] MEDS ORDERED: BUPIVACAINE/EPI 0.5% 30 ML SDV ONE (11:04)
[2018-05-01] MEDS ORDERED: METHYLENE BLUE 0.5% 50 MG/10 ML AMP ONE (11:04)
[2018-05-01] MEDS ORDERED: KETOROLAC 15 MG/1 ML SDV IVP ONE (12:20)
[2018-05-01] MEDS ORDERED: LIDOCAINE/DEXTROSE 500 ML IV SCH (12:30)
[2018-05-01] MEDS ORDERED: LIDOCAINE 1% 160 MG in NS 100 ML IV ONE (13:15)
[2018-05-01] MEDS ORDERED: OXYCODONE/APAP 5/325 TAB PO PRN (13:34)
[2018-05-01] MEDS ORDERED: ONDANSETRON DISINTEGRATING 4 MG TAB PO PRN (13:35)
[2018-05-01] MEDS ORDERED: LR 1,000 ML IV SCH (14:00)
[2018-05-01] MEDS: HYDROmorphONE/DILAUDID 1 MG/ML INJ IVP PRN (17:20)
[2018-05-01] MEDS: KETOROLAC 30 MG/1 ML SDV IVP SCH (17:55)
[2018-05-01] MEDS: GABAPENTIN 300 MG CAP PO SCH ×2 (19:38→20:55)
[2018-05-01] MEDS: DOCUSATE SODIUM 100 MG CAP PO SCH (20:04)
[2018-05-01] MEDS: SIMETHICONE 80 MG TAB CHEW PO SCH (23:49)
[2018-05-02] MEDS: SIMETHICONE 80 MG TAB CHEW PO SCH ×3 (00:12→12:20)
[2018-05-02] MEDS: oxyCODONE IR 5 MG TAB PO PRN ×3 (00:12→11:24)
[2018-05-02] MEDS: KETOROLAC 30 MG/1 ML SDV IVP SCH ×3 (00:40→11:38)
[2018-05-02] MEDS: HYDROmorphONE/DILAUDID 1 MG/ML INJ IVP PRN (05:20)
[2018-05-02] MEDS: GABAPENTIN 300 MG CAP PO SCH (08:02)
[2018-05-02] MEDS: DOCUSATE SODIUM 100 MG CAP PO SCH (08:03)
[2018-05-02 09:15] VITALS: BP 108/62
--- NOTE | 2018-05-03 18:42 | GDS ---
[f rep st] DISCHARGE SUMMARY DISCHARGE DIAGNOSES: 1. Endometriosis. 2. Pelvic pain. 3. Dyschezia. PROCEDURES: 1. Robotic excision of extensive endometriosis in anterior and posterior cul-de-sac, bilateral pelvi c side sidewalls. 2. Excision of rectal lesion. 3. Bilateral ureterolysis. 4. Bilateral ovarian pexy. 5. Chromotubation. HISTORY: The patient is a 32-year-old female with endometriosis. She was taken to the operating fani m on 05/01/2018, where she underwent the above-mentioned procedures without complications. Postoperatively, her course was relatively uneventful. She did have pain requiring significant analg esics in the recovery room. Once she was transferred to the floor, her pain was better controlled. She was discharged home the following morning on Percocet 10/325, Naprosyn, Phenergan, and Valium for spasms. That morning she was ambulating, voiding, and tolerating a general diet. She was to follow up in the office 2 weeks after discharge. /[id number]/MODL
[2018-05-04] MEDS ORDERED: PATCH REMOVAL 1 EA PATCH TD SCH (07:47)
== END 2018-05-02 12:30 | disposition home or self-care (01) ==
LOC: F3N 05:35 → F3E 08:13 → FOB 17:04
PROVIDERS: ADMIT Obstetrics & Gynecology; ATTEND Obstetrics & Gynecology
DX: N80.9 Endometriosis, unspecified (principal); Z31.41 Encounter for fertility testing; N94.6 Dysmenorrhea, unspecified; N94.10 Unspecified dyspareunia; R10.12 Left upper quadrant pain; Z87.891 Personal history of nicotine dependence
CPT/HCPCS: 58350; 58662; 58679; C1765; J0690; J1100; J1170; J1885; J2175; J2250; J2370; J2405; J2550; J2704; J2710; J2780; J3010; J3360; Q9968

== ENCOUNTER 2018-05-12 13:36 | Emergency (ER) | payer MEDICAID ==
--- NOTE | 2018-05-12 14:00 | EDPHY ---
H & P Stated Complaint: abd swelling and pain s/p surgery 05/01 Time Seen by Provider: 05/12/18 13:56 HPI/ROS: CHIEF COMPLAINT: Abdominal pain HISTORY OF PRESENT ILLNESS: The patient presents the emergency department with abdominal pain and distention. The patient is status post laparoscopic excisions of endometriosis May [address] Keo Contreras. The patient reports that she has had a prolonged postoperative pain. She is supposed to see her prenatal genetic counselor later this week for follow-up appointment. She is concerned given the duration of pain that she has had. She also had some subjective fever and chills. The patient reports that she has had a history of 5 prior laparoscopic surgeries for endometriosis. She does deal with some degree of chronic pelvic pain. REVIEW OF SYSTEMS: A comprehensive 10 point review of systems is otherwise negative aside from elements mentioned in the history of present illness. Source: Patient Exam Limitations: No limitations - Personal History Current Tetanus/Diphtheria Vaccine: Yes Current Tetanus Diphtheria and Acellular Pertussis (TDAP): Yes Tetanus Vaccine Date: 2017 - Medical/Surgical History Hx Asthma: Yes Hx Chronic Respiratory Disease: No Hx Diabetes: No Hx Cardiac Disease: No Hx Renal Disease: No Hx Cirrhosis: No Hx Alcoholism: No Hx HIV/AIDS: No Hx Splenectomy or Spleen Trauma: No Other PMH: endometriosis, Migraines, RAD - Social History Smoking Status: Never smoked - Physical Exam Exam: General Appearance: Alert, no distress Eyes: Pupils equal and round no pallor or injection ENT, Mouth: Mucous membranes moist Respiratory: There are no retractions, lungs are clear to auscultation Cardiovascular: Regular rate and rhythm Gastrointestinal: Abdomen is soft and nontender, no masses, bowel sounds normal Neurological: A&O, normal motor function, normal sensory exam, normal cranial nerves Skin: Surgical incisions are clean dry and intact Musculoskeletal: Neck is supple nontender Extremities: symmetrical, full range of motion Constitutional: Initial Vital Signs Temperature (C) 36.8 C 05/12/18 13:51 Heart Rate 93 05/12/18 13:51 Respiratory Rate 16 05/12/18 13:51 Blood Pressure 128/75 H 05/12/18 13:51 O2 Sat (%) 97 05/12/18 13:51 O2 Delivery Mode Room Air Allergies/Adverse Reactions: aloe Allergy (Verified 05/12/18 13:50) Other-Enter Comments ciprofloxacin [From Cipro] Allergy (Verified 05/12/18 13:50) Other-Enter Comments gluten Allergy (Verified 05/12/18 13:50) Other-Enter Comments Iodinated Contrast- Oral and IV Dye Allergy (Verified 05/12/18 13:50) ondansetron [From Zofran] Allergy (Verified 05/12/18 13:50) Other-Enter Comments Home Medications: Medication Instructions Recorded Proair Hfa 01/15/18 Proventil Neb 01/15/18 Acetaminophen 1,000 mg PO 05/01/18 Naproxen 1,300 mg PO Q4 05/01/18 Promethazine HCl [Phenergan 25mg 25 mg PO Q6 PRN #30 tab 05/02/18 (*)] oxyCODONE HCL/ACETAMINOPHEN 1 each PO Q4 PRN #40 tablet 05/02/18 [Percocet 10-325 mg Tablet] Aleve 05/12/18 Amoxicillin/Clavulanate Pot 875 mg PO BID #20 tab 05/12/18 [Augmentin 875 mg tablet] oxyCODONE/APAP 5/325 [Percocet 1 - 2 tab PO Q6-8PRN PRN #20 tab 05/12/18 5/325 (RX)] Medical Decision Making - Diagnostics Imaging Results: Imaging Impressions Abdomen CT 05/12/18 14:54 Impression: Inflammatory process in the pelvis without discrete abscess. Likely an incidental right adnexal cyst and uterine adenomyosis. If clinically indicated consider pelvic sonography. Results discussed with Dr. Arnold Iyer at 5:08 PM. General information for patients regarding this examination can be found at [email or web address]. If you have questions or comments about this report, please contact me at [phone] (hospital) or [phone] (cell). 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 Patient was afebrile emergency department. She has no evidence of septic physiology. The patient was noted to [place] [id number] scan of the abdomen pelvis was obtained which demonstrated some mild inflammatory changes without evidence of an obvious perforation or abscess. Case was discussed with Dr. Contreras who requested the patient be given a dose of IV ceftriaxone and then started on oral antibiotics given her leukocytosis. He will follow up with her in the office on Sunday for recheck. The patient will be started on Augmentin per Dr. Contreras recommendation Differential Diagnosis: Differential diagnosis considered includes perforation, abscess, obstruction, colitis, appendicitis, urinary tract infection - Data Points Laboratory Results: Laboratory Results 05/12/18 14:10 05/12/18 14:10 05/12/18 05/12/18 05/12/18 14:10 14:10 14:10 WBC 19.41 10^3/uL H 10^3/uL (3.80-9.50) RBC 4.65 10^6/uL 10^6/uL (4.18-5.33) Hgb 13.5 g/dL g/dL (12.6-16.3) Hct 40.8 % % (38.0-47.0) MCV 87.7 fL fL (81.5-99.8) MCH 29.0 pg pg (27.9-34.1) MCHC 33.1 g/dL g/dL (32.4-36.7) RDW 14.6 % % (11.5-15.2) Plt Count 447 10^3/uL H 10^3/uL (150-400) MPV 10.3 fL fL (8.7-11.7) Neut % (Auto) 53.6 % % (39.3-74.2) Lymph % (Auto) 22.4 % % (15.0-45.0) [place] % (Auto) 6.8 % % (4.5-13.0) Eos % (Auto) 15.5 % H % (0.6-7.6) Baso % (Auto) 1.1 % % (0.3-1.7) Nucleat RBC Rel Count Not Reported Absolute Neuts (auto) 10.40 10^3/uL H 10^3/uL (1.70-6.50) Absolute Lymphs (auto) 4.35 10^3/uL H 10^3/uL (1.00-3.00) Absolute Monos (auto) 1.32 10^3/uL H 10^3/uL (0.30-0.80) Absolute Eos (auto) 3.01 10^3/uL H 10^3/uL (0.03-0.40) Absolute Basos (auto) 0.21 10^3/uL H 10^3/uL (0.02-0.10) Absolute Nucleated RBC Not Reported Immature Gran % 0.6 % % (0.0-1.1) Seg Neutrophils % 0.0 % % Band Neutrophils % 0.0 % % Lymphocytes % 0.0 % % Monocytes % 0.0 % % Eosinophils % 0.0 % % Basophils % 0.0 % % Metamyelocytes % 0.0 % % Myelocytes % 0.0 % % Promyelocytes % 0.0 % % Blast Cells % 0.0 % % Immature Gran # 0.12 10^3/uL H 10^3/uL (0.00-0.10) Absolute Seg Neuts 0.00 10^3/uL L 10^3/uL (1.70-6.50) Absolute Band Neuts 0.00 10^3/uL 10^3/uL (0.00-0.70) Absolute Lymphocytes 0.00 10^3/uL L 10^3/uL (1.00-3.00) Absolute Monocytes 0.00 10^3/uL L 10^3/uL (0.30-0.80) Absolute Eosinophils 0.00 10^3/uL L 10^3/uL (0.03-0.40) Absolute Basophils 0.00 10^3/uL L 10^3/uL (0.02-0.10) Absolute Metamyelocyte 0.00 10^3/mL 10^3/mL (0.00-0.00) Absolute Myelocytes 0.00 10^3/mL 10^3/mL (0.00-0.00) Absolute Promyelocytes 0.00 10^3/uL 10^3/uL (0.00-0.00) Absolute Plasma Cells 0.00 10^3/uL 10^3/uL (0.00-0.00) RBC/WBC/PLT Morphology NORMAL (NORMAL) Absolute Blast Cells 0.00 10^3/uL 10^3/uL (0.00-0.00) Plasma Cells % 0.0 % % Platelet Estimate ADEQUATE (ADEQ) Sodium 139 mEq/L mEq/L (135-145) Potassium 4.3 mEq/L mEq/L (3.5-5.2) Chloride 109 mEq/L mEq/L (97-110) Carbon Dioxide 25 mEq/l mEq/l (22-31) Anion Gap 5 mEq/L L mEq/L (6-14) BUN 16 mg/dL mg/dL (7-23) Creatinine 0.7 mg/dL mg/dL (0.6-1.0) Estimated GFR > 60 Glucose 79 mg/dL mg/dL (70-100) Calcium 9.4 mg/dL mg/dL (8.5-10.4) Beta HCG, Qual NEGATIVE Urine Color Urine Appearance Urine pH Ur Specific [place] Urine Protein Urine Ketones Urine Blood Urine Nitrate Urine Bilirubin Urine Urobilinogen Ur Leukocyte Esterase Urine Glucose 05/12/18 14:08 WBC RBC Hgb Hct MCV MCH MCHC RDW Plt Count MPV Neut % (Auto) Lymph % (Auto) [place] % (Auto) Eos % (Auto) Baso % (Auto) Nucleat RBC Rel Count Absolute Neuts (auto) Absolute Lymphs (auto) Absolute Monos (auto) Absolute Eos (auto) Absolute Basos (auto) Absolute Nucleated RBC Immature Gran % Seg Neutrophils % Band Neutrophils % Lymphocytes % Monocytes % Eosinophils % Basophils % Metamyelocytes % Myelocytes % Promyelocytes % Blast Cells % Immature Gran # Absolute Seg Neuts Absolute Band Neuts Absolute Lymphocytes Absolute Monocytes Absolute Eosinophils Absolute Basophils Absolute Metamyelocyte Absolute Myelocytes Absolute Promyelocytes Absolute Plasma Cells RBC/WBC/PLT Morphology Absolute Blast Cells Plasma Cells % Platelet Estimate Sodium Potassium Chloride Carbon Dioxide Anion Gap BUN Creatinine Estimated GFR Glucose Calcium Beta HCG, Qual Urine Color PALE YELLOW Urine Appearance CLEAR Urine pH 7.0 (5.0-7.5) Ur Specific [place] 1.002 (1.002-1.030) Urine Protein NEGATIVE (NEGATIVE) Urine Ketones NEGATIVE (NEGATIVE) Urine Blood NEGATIVE (NEGATIVE) Urine Nitrate NEGATIVE (NEGATIVE) Urine Bilirubin NEGATIVE (NEGATIVE) Urine Urobilinogen NEGATIVE EU EU (0.2-1.0) Ur Leukocyte Esterase NEGATIVE (NEGATIVE) Urine Glucose NEGATIVE (NEGATIVE) Medications Given: Discontinued Medications Diphenhydramine HCl (Benadryl Injection) 25 mg IVP EDNOW ONE Stop: 05/12/18 14:19 Last Admin: 05/12/18 14:28 Dose: 25 mg Lidocaine HCl 100 mg/ Sodium (Chloride) 110 mls @ 600 mls/hr IV EDNOW ONE Stop: 05/12/18 14:46 Last Admin: 05/12/18 15:18 Dose: 110 mls Ceftriaxone Sodium/Dextrose (Rocephin 1 Gm (Premix)) 50 mls @ 100 mls/hr IV EDNOW ONE PRN Reason: Protocol Stop: 05/12/18 17:53 Last Admin: 05/12/18 17:31 Dose: 50 mls Methylprednisolone Sodium Succinate (Solu-Medrol) 40 mg IVP EDNOW ONE Stop: 05/12/18 14:18 Last Admin: 05/12/18 14:26 Dose: 40 mg Departure - Departure Disposition: [facility] Inpatient Acute Clinical Impression: Abdominal pain, Leukocytosis Condition: Good Instructions: Acute Abdominal Pain (ED) Additional Instructions: 1. Take antibiotics as directed. 2. Pain medications as prescribed. 3. Return to the ED for markedly worsening pain or other concerns. 4. Please follow up with Dr. Contreras on Sunday for recheck. Referrals: Keo Contreras MD [Medical Doctor] - As per Instructions Prescriptions: Amoxicillin/Clavulanate Pot [Augmentin 875 mg tablet] 875 mg PO BID #20 tab oxyCODONE/APAP 5/325 [Percocet 5/325 (RX)] 1 - 2 tab PO Q6-8PRN PRN #20 tab PRN Reason: for pain
[2018-05-12] MEDS ORDERED: methylPREDNISolone SOD SUCC 40 MG/ML VIAL IVP ONE (14:17)
[2018-05-12 14:33] LABS: PLATELET COUNT 447 10^3/uL (150-400)
[2018-05-12] MEDS ORDERED: LIDOCAINE 1% 100 MG in NS 100 ML IV ONE (14:36)
[2018-05-12] MEDS ORDERED: IOHEXOL 300 mgI/ML (OMNIPAQUE) 150 ML BTL IV ONE (16:24)
[2018-05-12 19:01] VITALS: BP 124/87
== END 2018-05-12 18:45 | disposition still patient (30) ==
DX: R10.0 Acute abdomen (principal); D72.829 Elevated white blood cell count, unspecified; Z98.890 Other specified postprocedural states
CPT/HCPCS: 96365; J0696; J1200; J2920; Q9967

== ENCOUNTER 2018-06-02 13:00 | Inpatient (IN) | payer MEDICAID ==
[2018-06-02] MEDS ORDERED: NS 1,000 ML IV ONE ×2 (13:14→16:50)
--- NOTE | 2018-06-02 13:14 | EDPHY ---
H & P Stated Complaint: inf post laproscopy 05/01 just stopped abx n/v/d pain all over body Time Seen by Provider: 06/02/18 13:13 HPI/ROS: CHIEF COMPLAINT: Abdominal pain, chest pain, fevers HISTORY OF PRESENT ILLNESS: Patient presents to the ED with complaints of worsening abdominal pain, left-sided chest pain and fevers. She has a complicated past medical history. 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 She was seen in the ED shortly after that procedure and diagnosed with inflammatory changes in the abdomen without evidence of an obvious abscess. She was started on antibiotics at that time. She has been on antibiotics for approximately 3 weeks including Augmentin and clindamycin. She stop taking them on of this week. Patient reports that today she developed worsening left lower quadrant pain, pain below her left breast which is worsened with palpation, movement and inspiration. She denies cough or respiratory symptoms. She did developed fairly profuse watery diarrhea today. REVIEW OF SYSTEMS: A comprehensive 10 point review of systems is otherwise negative aside from elements mentioned in the history of present illness. Source: Patient Exam Limitations: No limitations - Personal History LMP (Females 10-55): Extended Cycle BCP/Inj Current Tetanus Diphtheria and Acellular Pertussis (TDAP): Yes Tetanus Vaccine Date: 2017 - Medical/Surgical History Hx Asthma: Yes Hx Chronic Respiratory Disease: No Hx Diabetes: No Hx Cardiac Disease: No Hx Renal Disease: No Hx Cirrhosis: No Hx Alcoholism: No Hx HIV/AIDS: No Hx Splenectomy or Spleen Trauma: No Other PMH: endometriosis, Migraines, RAD lap for endometriosis - Social History Smoking Status: Never smoked - Physical Exam Exam: General Appearance: Tearful, appears uncomfortable Eyes: Pupils equal and round no pallor or injection ENT, Mouth: Mucous membranes moist Respiratory: There are no retractions, lungs are clear to auscultation Cardiovascular: Regular rate and rhythm Gastrointestinal: Tenderness to palpation in the left lower quadrant Neurological: 5/5 strength noted all 4 extremities Skin: Warm and dry, no rashes Musculoskeletal: Neck is supple nontender Extremities: symmetrical, full range of motion Constitutional: Initial Vital Signs Temperature (C) 37.3 C 06/02/18 13:04 Heart Rate 94 06/02/18 13:04 Respiratory Rate 17 06/02/18 13:04 Blood Pressure 124/79 H 06/02/18 13:04 O2 Sat (%) 94 06/02/18 13:04 O2 Delivery Mode Room Air Allergies/Adverse Reactions: aloe Allergy (Verified 06/02/18 13:03) Other-Enter Comments ciprofloxacin [From Cipro] Allergy (Verified 06/02/18 13:03) Other-Enter Comments gluten Allergy (Verified 06/02/18 13:03) Other-Enter Comments Iodinated Contrast- Oral and IV Dye Allergy (Verified 06/02/18 13:03) ondansetron [From Zofran] Allergy (Verified 06/02/18 13:03) Other-Enter Comments Home Medications: Medication Instructions Recorded Proair Hfa 01/15/18 Proventil Neb 01/15/18 Acetaminophen 1,000 mg PO 05/01/18 Naproxen 1,300 mg PO Q4 05/01/18 Promethazine HCl [Phenergan 25mg 25 mg PO Q6 PRN #30 tab 05/02/18 (*)] oxyCODONE HCL/ACETAMINOPHEN 1 each PO Q4 PRN #40 tablet 05/02/18 [Percocet 10-325 mg Tablet] Aleve 05/12/18 oxyCODONE/APAP 5/325 [Percocet 1 - 2 tab PO Q6-8PRN PRN #20 tab 05/12/18 5/325 (RX)] Bcp 06/02/18 Medical Decision Making - Diagnostics Imaging Results: Imaging Impressions Abdomen CT 06/02/18 13:59 Impression: 1. No visible pulmonary embolus. 2. Trace pleural effusions. 3. Mild thickening of the ascending colon, suspicious for colitis. 4. Resolution of previously noted pelvic mesenteric stranding. 5. Additional findings, as above. Findings discussed with Asher Iyer MD on June 02, 2018 at 1558 hours. Chest/Thorax CTA 06/02/18 13:59 Impression: 1. No visible pulmonary embolus. 2. Trace pleural effusions. 3. Mild thickening of the ascending colon, suspicious for colitis. 4. Resolution of previously noted pelvic mesenteric stranding. 5. Additional findings, as above. Findings discussed with Asher Iyer MD on June 02, 2018 at 1558 hours. ED Course/Re-evaluation: The patient presents the ED with multiple complaints including fever, worsening abdominal pain, chest wall discomfort and loose stool. The patient has had a complicated history with a recent long treatment of antibiotics for intestinal inflammation following a robotic gynecologic surgery. The patient stop taking antibiotics last week as her leukocytosis had been resolving. Patient had an IV established. She received IV pain medications and Ativan as she appeared quite anxious. The patient was taken for CT scan of the chest which demonstrated no evidence of pulmonary embolism. She did have trace pleural effusions. CT scan of the abdomen pelvis demonstrates no intra-abdominal inflammation but does demonstrate the possibility of ascending colitis. The patient was unable to produce a stool sample in the ED. Patient had multiple examinations over a 3 hr period. She still is having uncontrolled pain. She will require admission to the hospital. I am somewhat suspicious she may have C diff in the setting of her recent antibiotic use of colitis noted on CT. Consultation was made with Dr. Christianson from the hospitalist service who will admit the patient this evening. Differential Diagnosis: Differential diagnosis considered includes intra-abdominal abscess, peritonitis , colitis, pulmonary embolism, pneumonia, influenza - Data Points Laboratory Results: Laboratory Results 06/02/18 13:22 06/02/18 13:22 06/02/18 06/02/18 06/02/18 13:22 13:22 13:22 WBC 22.05 10^3/uL H 10^3/uL (3.80-9.50) RBC 4.61 10^6/uL 10^6/uL (4.18-5.33) Hgb 13.6 g/dL g/dL (12.6-16.3) Hct 40.3 % % (38.0-47.0) MCV 87.4 fL fL (81.5-99.8) MCH 29.5 pg pg (27.9-34.1) MCHC 33.7 g/dL g/dL (32.4-36.7) RDW 15.1 % % (11.5-15.2) Plt Count 309 10^3/uL 10^3/uL (150-400) MPV 10.4 fL fL (8.7-11.7) Neut % (Auto) 89.7 % H % (39.3-74.2) Lymph % (Auto) 3.4 % L % (15.0-45.0) [place] % (Auto) 5.9 % % (4.5-13.0) Eos % (Auto) 0.4 % L % (0.6-7.6) Baso % (Auto) 0.2 % L % (0.3-1.7) Nucleat RBC Rel Count 0.0 % % (0.0-0.2) Absolute Neuts (auto) 19.79 10^3/uL H 10^3/uL (1.70-6.50) Absolute Lymphs (auto) 0.76 10^3/uL L 10^3/uL (1.00-3.00) Absolute Monos (auto) 1.30 10^3/uL H 10^3/uL (0.30-0.80) Absolute Eos (auto) 0.08 10^3/uL 10^3/uL (0.03-0.40) Absolute Basos (auto) 0.04 10^3/uL 10^3/uL (0.02-0.10) Absolute Nucleated RBC 0.00 10^3/uL 10^3/uL (0-0.01) Immature Gran % 0.4 % % (0.0-1.1) Immature Gran # 0.08 10^3/uL 10^3/uL (0.00-0.10) Sodium 137 mEq/L mEq/L (135-145) Potassium 4.0 mEq/L mEq/L (3.5-5.2) Chloride 108 mEq/L mEq/L (97-110) Carbon Dioxide 20 mEq/l L mEq/l (22-31) Anion Gap 9 mEq/L mEq/L (6-14) BUN 14 mg/dL mg/dL (7-23) Creatinine 0.7 mg/dL mg/dL (0.6-1.0) Estimated GFR > 60 Glucose 99 mg/dL mg/dL (70-100) Calcium 9.4 mg/dL mg/dL (8.5-10.4) Total Bilirubin 0.4 mg/dL mg/dL (0.1-1.4) Conjugated Bilirubin 0.3 mg/dL mg/dL (0.0-0.5) Unconjugated Bilirubin 0.1 mg/dL mg/dL (0.0-1.1) AST 17 IU/L IU/L (14-46) ALT 21 IU/L IU/L (9-52) Alkaline Phosphatase 89 IU/L IU/L (38-126) Total Protein 7.3 g/dL g/dL (6.3-8.2) Albumin 4.2 g/dL g/dL (3.5-5.0) Lipase 115 IU/L IU/L (23-300) Beta HCG, Qual NEGATIVE Medications Given: Discontinued Medications Diphenhydramine HCl (Benadryl Injection) 25 mg IVP EDNOW ONE Stop: 06/02/18 14:05 Last Admin: 06/02/18 14:27 Dose: 25 mg Sodium Chloride (Ns) 1,000 mls @ 0 mls/hr IV EDNOW ONE; Wide Open PRN Reason: Protocol Stop: 06/02/18 13:15 Last Admin: 06/02/18 13:23 Dose: 1,000 mls Sodium Chloride (Ns) 1,000 mls @ 0 mls/hr IV ONCE ONE; Wide Open PRN Reason: Protocol Stop: 06/02/18 16:51 Last Admin: 06/02/18 16:52 Dose: 1,000 mls Lorazepam (Ativan Injection) 1 mg IVP EDNOW ONE Stop: 06/02/18 13:28 Last Admin: 06/02/18 13:36 Dose: 1 mg Methylprednisolone Sodium Succinate (Solu-Medrol) 40 mg IVP EDNOW ONE Stop: 06/02/18 14:06 Last Admin: 06/02/18 14:27 Dose: 40 mg Morphine Sulfate (Morphine) 4 mg IVP EDNOW ONE Stop: 06/02/18 13:29 Last Admin: 06/02/18 13:36 Dose: 4 mg Morphine Sulfate (Morphine) 4 mg IVP EDNOW ONE Stop: 06/02/18 14:28 Last Admin: 06/02/18 14:28 Dose: 4 mg Departure - Departure Disposition: [facility] Inpatient Acute Clinical Impression: Abdominal pain, Diarrhea, Leukocytosis, Rule out C diff Condition: Fair Referrals: NONE *PRIMARY CARE P,. [Primary Care Provider] - As per Instructions
[2018-06-02] MEDS ORDERED: LORazepam 2 MG/ML INJ IVP ONE (13:27)
[2018-06-02 13:33] LABS: PLATELET COUNT 309 10^3/uL (150-400)
[2018-06-02] MEDS ORDERED: methylPREDNISolone SOD SUCC 40 MG/ML VIAL IVP ONE (14:05)
[2018-06-02] MEDS ORDERED: IOPAMIDOL (ISOVUE 370) 100 ML BTL IV ONE (14:57)
[2018-06-02] MEDS ORDERED: HYDROmorphONE/DILAUDID 2 MG/ML INJ IVP ONE (17:20)
[2018-06-02] MEDS ORDERED: ACETAMINOPHEN 325 MG TAB PO PRN (17:58)
[2018-06-02] MEDS ORDERED: ONDANSETRON DISINTEGRATING 4 MG TAB PO PRN (17:58)
--- NOTE | 2018-06-02 18:22 | PDGENHP ---
History and Physical - Chief Complaint abdominal pain, fever - History of Present Illness 32yo F who underwent robotic excision of extensive endometriosis on 05/01/2018 presents with abdominal pain, loose stools, and fever. Her post-operative course was complicated by persistent abdominal pain. She returned to the ED on and had a CT of her abdomen. This showed an "inflammatory process in the pelvis" without discrete abscess. She had a WBC count of 19k. She was started on Augmentin at the recommendation of her cook 3 pastry. Several days later she was started on clindamycin as well. Her symptoms seemed to improve. She was on these antibiotics for roughly 3.5 weeks due to a persistently elevated WBC count. She completed these 5 days ago. Overall her abdominal pain had significantly improved with antibiotics. However, over the last few days she has had worsening lower abdominal pain, severemyalgias, nausea/vomiting, and low grade fevers. This morning she woke up with terrible abdominal pain. She then developed profuse watery diarrhea and has had about 6 episodes of this today. She is also complaining of severe left chest wall pain, like someone is "trying to tear off her breast". In the ED, she was noted to have a WBC count of 22k, previously down to 11k on . A CTA of her chest was negative for PE. A CT of her abdomen shows resolution of pelvic inflammatory changes from a month ago but does show new ascending colonic inflammation. She is currently having uncontrolled pain and is unable to tolerate PO. She is being admitted for further evaluation and management. Case discussed with ED physician Arnold Iyer. Previous records reviewed. History Information - Allergies/Home Medication List Allergies/Adverse Reactions: aloe Allergy (Verified 06/02/18 13:03) Other-Enter Comments ciprofloxacin [From Cipro] Allergy (Verified 06/02/18 13:03) Other-Enter Comments gluten Allergy (Verified 06/02/18 13:03) Other-Enter Comments Iodinated Contrast- Oral and IV Dye Allergy (Verified 06/02/18 13:03) ondansetron [From Zofran] Allergy (Verified 06/02/18 13:03) Other-Enter Comments Home Medications: Proair Hfa 01/15/18 [Last Taken 1 Week Ago ~04/24/18] Proventil Neb 01/15/18 [Last Taken 05/01/18 04:00] Acetaminophen 1,000 mg PO 05/01/18 [Last Taken 05/01/18 04:30] Naproxen 1,300 mg PO Q4 05/01/18 [Last Taken 04/30/18] Aleve 05/12/18 [Last Taken Unknown] Bcp 06/02/18 [Last Taken Unknown] I have personally reviewed and updated: family history, medical history, social history, surgical history - Past Medical History Additional medical history: endometriosis, migraine headaches, reactive airways disease - Surgical History Additional surgical history: robotic excision of endometriosis 05/01/2018, prior laparoscopic surgeries for endometriosis - Family History Positive for: non-pertinent - Social History Smoking Status: Never smoked Alcohol Use: None Drug Use: None Additional social history: Lives with who is at bedside. 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 Review of Systems Review of Systems: ROS: 10pt was reviewed & negative except for what was stated in HPI & below Physical Exam Physical Exam: Temp Pulse Resp BP Pulse Ox 37.6 C 105 H 20 145/85 H 94 06/02/18 17:42 06/02/18 17:42 06/02/18 17:42 06/02/18 17:42 06/02/18 17:42 Constitutional: other (hysterical in pain/worried about what's going on) Eyes: PERRL, anicteric sclera Ears, Nose, Mouth, Throat: dry mucous membranes Cardiovascular: regular rate and rhythym, no murmur, rub, or gallop, No edema Respiratory: no respiratory distress, no rales or rhonchi, clear to auscultation Gastrointestinal: normoactive bowel sounds, no palpable masses, tenderness ( lower quadrants), other (well healed laparoscopic incisions), No guarding, No rebound Genitourinary: no bladder fullness, no bladder tenderness Skin: warm, normal color, no rashes or abrasions, no fluctuance, no induration, No mottled Musculoskeletal: full muscle strength, no muscle tenderness, normal joint ROM, no joint effusions Neurologic: AAOx3 Psychiatric: interacting appropriately, not anxious, not encephalopathic, thought process linear Lab Data & Imaging Review 06/02/18 13:22 06/02/18 13:22 WBC 22.05 10^3/uL (3.80-9.50) H 06/02/18 13:22 RBC 4.61 10^6/uL (4.18-5.33) 06/02/18 13:22 Hgb 13.6 g/dL (12.6-16.3) 06/02/18 13:22 Hct 40.3 % (38.0-47.0) 06/02/18 13:22 MCV 87.4 fL (81.5-99.8) 06/02/18 13:22 MCH 29.5 pg (27.9-34.1) 06/02/18 13:22 MCHC 33.7 g/dL (32.4-36.7) 06/02/18 13:22 RDW 15.1 % (11.5-15.2) 06/02/18 13:22 Plt Count 309 10^3/uL (150-400) 06/02/18 13:22 MPV 10.4 fL (8.7-11.7) 06/02/18 13:22 Neut % (Auto) 89.7 % (39.3-74.2) H 06/02/18 13:22 Lymph % (Auto) 3.4 % (15.0-45.0) L 06/02/18 13:22 [place] % (Auto) 5.9 % (4.5-13.0) 06/02/18 13:22 Eos % (Auto) 0.4 % (0.6-7.6) L 06/02/18 13:22 Baso % (Auto) 0.2 % (0.3-1.7) L 06/02/18 13:22 Nucleat RBC Rel Count 0.0 % (0.0-0.2) 06/02/18 13:22 Absolute Neuts (auto) 19.79 10^3/uL (1.70-6.50) H 06/02/18 13:22 Absolute Lymphs (auto) 0.76 10^3/uL (1.00-3.00) L 06/02/18 13:22 Absolute Monos (auto) 1.30 10^3/uL (0.30-0.80) H 06/02/18 13:22 Absolute Eos (auto) 0.08 10^3/uL (0.03-0.40) 06/02/18 13:22 Absolute Basos (auto) 0.04 10^3/uL (0.02-0.10) 06/02/18 13:22 Absolute Nucleated RBC 0.00 10^3/uL (0-0.01) 06/02/18 13:22 Immature Gran % 0.4 % (0.0-1.1) 06/02/18 13:22 Immature Gran # 0.08 10^3/uL (0.00-0.10) 06/02/18 13:22 Sodium 137 mEq/L (135-145) 06/02/18 13:22 Potassium 4.0 mEq/L (3.5-5.2) 06/02/18 13:22 Chloride 108 mEq/L (97-110) 06/02/18 13:22 Carbon Dioxide 20 mEq/l (22-31) L 06/02/18 13:22 Anion Gap 9 mEq/L (6-14) 06/02/18 13:22 BUN 14 mg/dL (7-23) 06/02/18 13:22 Creatinine 0.7 mg/dL (0.6-1.0) 06/02/18 13:22 Estimated GFR > 60 06/02/18 13:22 Glucose 99 mg/dL (70-100) 06/02/18 13:22 Calcium 9.4 mg/dL (8.5-10.4) 06/02/18 13:22 Total Bilirubin 0.4 mg/dL (0.1-1.4) 06/02/18 13:22 Conjugated Bilirubin 0.3 mg/dL (0.0-0.5) 06/02/18 13:22 Unconjugated Bilirubin 0.1 mg/dL (0.0-1.1) 06/02/18 13:22 AST 17 IU/L (14-46) 06/02/18 13:22 ALT 21 IU/L (9-52) 06/02/18 13:22 Alkaline Phosphatase 89 IU/L (38-126) 06/02/18 13:22 Total Protein 7.3 g/dL (6.3-8.2) 06/02/18 13:22 Albumin 4.2 g/dL (3.5-5.0) 06/02/18 13:22 Lipase 115 IU/L (23-300) 06/02/18 13:22 Beta HCG, Qual NEGATIVE 06/02/18 13:22 Nasal Influenza A PCR NEGATIVE FOR FLU A (NEGATIVE) 06/02/18 17:16 Nasal Influenza B PCR NEGATIVE FOR FLU B (NEGATIVE) 06/02/18 17:16 RSV (PCR) NEGATIVE FOR RSV (NEGATIVE) 06/02/18 17:16 Interpretation: CT abd w/IV contrast and CTA chest: no PE, trace bilateral pleural effusions, mild thickening of ascending colon, resolution of previously noted pelvic mesenteric stranding Assessment & Plan Assessment: 32yo F who underwent robotic excision of extensive endometriosis on 05/01/2018 presents with abdominal pain, loose stools, and fever. Plan: #Acute diarrhea: Suspect C diff given recent antibiotics, watery diarrhea, colitis on imaging, leukocytosis. - C diff PCR ordered, has not provided stool - Hold on loperamide #SIRS: Likely related to above. She has not had a true fever here. - IVF, check blood cultures, hold on antibiotics #Abdominal pain: Acute component related to diarrhea/colitis. I suspect she has a chronic component as well. #Left chest wall pain, myalgias: CTA neg for PE. She does have small pleural effusion on CT but her pain isn't necessarily pleuritic. - Trial toradol PRN #Anxiety: She is very anxious on my encounter with her. - Ativan PRN #Endometriosis: S/p robotic excision 05/01/2018 - Dr Contreras (her cook 3 pastry) has been consulted and will see #Reactive airways disease: No flare - Continue home inhalers VTE ppx: SCDs Code: full Dispo: Admit under observation
[2018-06-02] MEDS: NS 1,000 ML IV SCH (19:52)
[2018-06-02] MEDS: KETOROLAC 15 MG/1 ML SDV IVP PRN (19:53)
[2018-06-02] MEDS ORDERED: MELATONIN 3 MG TAB PO PRN (21:23)
[2018-06-02] MEDS ORDERED: ALBUTEROL 60 PUFFS/8 GM MDI IH PRN (21:23)
[2018-06-02] MEDS: HYDROmorphONE/DILAUDID 1 MG/ML INJ IVP PRN (21:58)
[2018-06-03] MEDS: PROMETHAZINE HCL 25 MG/ML INJ IVP PRN ×4 (00:41→16:35)
[2018-06-03] MEDS: NS 1,000 ML IV SCH ×2 (04:36→22:42)
[2018-06-03 05:01] LABS: PLATELET COUNT 308 10^3/uL (150-400)
[2018-06-03] MEDS: KETOROLAC 15 MG/1 ML SDV IVP PRN ×2 (07:20→23:05)
[2018-06-03] MEDS: HYDROmorphONE/DILAUDID 1 MG/ML INJ IVP PRN ×4 (07:31→21:14)
--- NOTE | 2018-06-03 08:20 | HOSPPROG ---
Hospitalist Progress Note Assessment/Plan: 32yo F who underwent robotic excision of extensive endometriosis on 05/01/2018 presents with abdominal pain, loose stools, and fever. Her post-operative course was complicated by persistent abdominal pain. She returned to the ED on and had a CT of her abdomen. This showed an "inflammatory process in the pelvis" without discrete abscess. She had a WBC count of 19k. She was started on Augmentin at the recommendation of her combat systems operator mine warfare. Several days later she was started on clindamycin as well. Her symptoms seemed to improve. She was on these antibiotics for roughly 3.5 weeks due to a persistently elevated WBC count. She completed these 5 days ago. She is admitted with recurrent abdominal pain, diarrhea, nausea and chest pain. Evaluation revealed colitis and C.diff is pending. # Abdominal pain, leukocytosis, diarrhea, and colitis on CT. * + C.diff, will empirically treat with PO Vanco. * hydrate and follow clinically * treat pain * Patient with significant pain requiring IV narcotics will need additional midnight stay for treatment of her colitis and pain control # Chest wall pain, CTA negative, will follow # RAD: stable, continue medications # Migraines # Recent Pelvic inflammatory process, s/p 3+weeks of oral antibiotics. Subjective: The patient new to me and chart reviewed. Complains of abdominal pain and watery diarrhea. Objective: Vital Signs Temp Pulse Resp BP Pulse Ox 37.1 C 79 18 120/61 95 06/03/18 04:45 06/03/18 04:45 06/03/18 04:45 06/03/18 04:45 06/03/18 04:45 Laboratory Results 06/03/18 04:30 06/03/18 04:30 06/02/18 06/03/18 06/04/18 05:59 05:59 05:59 Intake Total 3125 Output Total 450 Balance 2675 - Physical Exam Constitutional: uncomfortable Eyes: PERRL Ears, Nose, Mouth, Throat: moist mucous membranes Cardiovascular: regular rate and rhythym Respiratory: no respiratory distress Gastrointestinal: tenderness (Lower quadrants), guarding (Minimal) Genitourinary: no bladder fullness Skin: warm, normal color Neurologic: AAOx3 Psychiatric: interacting appropriately ICD10 Worksheet Patient Problems: Problems Problem Status Onset Abdominal pain Acute Diarrhea Acute Leukocytosis Acute Endometriosis of pelvic peritoneum Acute
[2018-06-03] MEDS: LORazepam 1 MG TAB PO PRN ×2 (08:39→23:06)
[2018-06-03] MEDS: FLUTICASONE HFA 110 MCG MDI IH SCH ×2 (09:54→21:23)
[2018-06-03] MEDS: VANCOMYCIN 125 MG/2.5 ML UDL PO SCH ×4 (11:21→21:14)
--- NOTE | 2018-06-03 11:42 | ASMTCMCOM ---
CM Note CM Note Notes: Patient admitted with abdominal pain, + for C-Diff. Per RN, patient has some concerns about her financial responsibility - I have requested that Financial Counseling call or come speak to patient about coverage. Anticipate patient will be able to d/c home independently CM available should further needs arise. Plan: Likely independent. Date Signed: 06/03/2018 11:41 AM Electronically Signed By:Kandice Ritter RN
--- NOTE | 2018-06-03 15:45 | PDMN ---
Medical Necessity Medical necessity: [facility] [place] M170 Gastroenteritis, A-2 days: 32 yo w/ abd pain, diarrhea and fever in setting of recent robotic excision of extensive endometriosis on 05/01/18. Imaging shows colitis and pt + for C.diff. Pt initially OBS for workup and tx but requires additional MN as pt still requiring IVF, IV dilaudid for pain and IV antiemetics to control n/v. BC pending. Change to IP status 06/03/18@1500 per MD order.
[2018-06-04] MEDS: VANCOMYCIN 125 MG/2.5 ML UDL PO SCH ×4 (05:43→20:27)
[2018-06-04] MEDS: HYDROmorphONE/DILAUDID 1 MG/ML INJ IVP PRN (05:58)
[2018-06-04] MEDS: PROMETHAZINE HCL 25 MG/ML INJ IVP PRN ×3 (05:59→20:28)
[2018-06-04] MEDS: NS 1,000 ML IV SCH (06:10)
[2018-06-04] MEDS: LORazepam 1 MG TAB PO PRN (09:28)
[2018-06-04] MEDS: oxyCODONE IR 5 MG TAB PO PRN ×4 (09:29→22:49)
[2018-06-04] MEDS: KETOROLAC 15 MG/1 ML SDV IVP PRN (09:29)
--- NOTE | 2018-06-04 10:18 | HOSPPROG ---
Hospitalist Progress Note Assessment/Plan: 32yo F who underwent robotic excision of extensive endometriosis on 05/01/2018 presents with abdominal pain, loose stools, and fever. Her post-operative course was complicated by persistent abdominal pain. She returned to the ED on and had a CT of her abdomen. This showed an "inflammatory process in the pelvis" without discrete abscess. She had a WBC count of 19k. She was started on Augmentin at the recommendation of her electroless plater. Several days later she was started on clindamycin as well. Her symptoms seemed to improve. She was on these antibiotics for roughly 3.5 weeks due to a persistently elevated WBC count. She completed these 5 days ago. She is admitted with recurrent abdominal pain, diarrhea, nausea and chest pain. Evaluation revealed colitis positive C diff # Abdominal pain, leukocytosis, diarrhea, and colitis on CT. * + C.diff, will treat treat with PO Vanco. * hydrate and follow clinically * treat pain, add hyoscyamine for your abdominal cramps * Patient with significant pain requiring IV narcotics will need additional midnight stay for treatment of her colitis and pain control once her pain is controlled off IV she can go home # Chest wall pain, CTA negative, will follow # RAD: stable, continue medications # Migraines # Recent Pelvic inflammatory process, s/p 3+weeks of oral antibiotics. Subjective: Still having a lot of abdominal cramping and pain. Diarrhea is slightly improved today Objective: Vital Signs Temp Pulse Resp BP Pulse Ox 37.2 C 70 16 114/74 97 06/04/18 08:51 06/04/18 08:51 06/04/18 08:51 06/04/18 08:51 06/04/18 08:51 06/03/18 06/04/18 06/05/18 05:59 05:59 05:59 Intake Total 800 3937 Balance 800 3937 - Physical Exam Constitutional: uncomfortable Eyes: PERRL Ears, Nose, Mouth, Throat: moist mucous membranes Cardiovascular: regular rate and rhythym Respiratory: no respiratory distress Gastrointestinal: tenderness (Lower abdomen), No guarding Genitourinary: no bladder fullness Skin: warm Musculoskeletal: full muscle strength Neurologic: AAOx3 Psychiatric: interacting appropriately ICD10 Worksheet Patient Problems: Problems Problem Status Onset Abdominal pain Acute Diarrhea Acute Leukocytosis Acute Endometriosis of pelvic peritoneum Acute
[2018-06-04] MEDS: FLUTICASONE HFA 110 MCG MDI IH SCH ×2 (10:46→22:02)
[2018-06-04] MEDS: HYOSCYAMINE SULFATE 0.125 MG TAB PO PRN ×2 (10:59→19:06)
--- NOTE | 2018-06-04 14:46 | ASMTCMCOM ---
CM Note CM Note Notes: Patient plan of care reviewed in am rounds. Generally healthy 32 year old female s/p evlevated WBC s/p surgery in April for PID. Patient developed C-Diff and is currently undergoing treatment. No needs identified at this time. CM available should needs arise. Plan: Dc indpendently when medically cleared to discharge. Date Signed: 06/04/2018 02:45 PM Electronically Signed By:Alida Casarez RN
[2018-06-05] MEDS: oxyCODONE IR 5 MG TAB PO PRN ×3 (04:37→18:05)
[2018-06-05] MEDS: PROMETHAZINE HCL 25 MG/ML INJ IVP PRN ×2 (04:38→11:06)
[2018-06-05] MEDS: VANCOMYCIN 125 MG/2.5 ML UDL PO SCH ×4 (04:54→21:13)
[2018-06-05] MEDS: KETOROLAC 15 MG/1 ML SDV IVP PRN (04:54)
[2018-06-05 08:20] LABS: PLATELET COUNT 277 10^3/uL (150-400)
[2018-06-05] MEDS: HYOSCYAMINE SULFATE 0.125 MG TAB PO PRN (09:18)
[2018-06-05] MEDS: FLUTICASONE HFA 110 MCG MDI IH SCH ×2 (09:55→22:53)
--- NOTE | 2018-06-05 11:18 | HOSPPROG ---
Hospitalist Progress Note Assessment/Plan: 32yo F who underwent robotic excision of extensive endometriosis on 05/01/2018 presents with abdominal pain, loose stools, and fever. Her post-operative course was complicated by persistent abdominal pain. She returned to the ED on and had a CT of her abdomen. This showed an "inflammatory process in the pelvis" without discrete abscess. She had a WBC count of 19k. She was started on Augmentin by her boom crane operator. Several days later Clindamycin was added. Her symptoms seemed to improve. She was on these antibiotics for roughly 3.5 weeks due to a persistently elevated WBC count. She completed these 5 days ago. She is admitted with recurrent abdominal pain, diarrhea, nausea and chest pain. Evaluation revealed colitis positive C diff # C diff - stools a little more formed today, still with significant pain * Cont po Vanc * Cont IV hydration * cont hyoscyamine for abdominal cramps * still requiring IV dilaudid for pain, add scheduled Toradol # Chest wall pain, CTA negative, RVP negative # RAD: stable, continue medications # Migraines # Endometriosis s/p surgery with subsequent pelvic inflammatory process, s/p 3+ weeks of oral antibiotics. Now menstruating, increased pain Pain control as above # DVT PPLX - low risk, SCD's # Dispo - cont inpt as pt continues to require IV opioids for pain control, ADD 1-2 days once pain controlled on oral agents Subjective: It is pt's 33rd birthday. She complains of 8-10/10 pain this am, IV dilaudid helped but oral oxy did not. She started her menses. Still lower abdominal pain and cramping. Stools a little less frequent, a bit more formed. Some nausea, no vomiting. Objective: Vital Signs Temp Pulse Resp BP Pulse Ox 36.9 C 78 14 122/71 H 96 06/05/18 08:00 06/05/18 09:45 06/05/18 09:45 06/05/18 08:00 06/05/18 09:45 Laboratory Results 06/05/18 08:08 06/04/18 06/05/18 06/06/18 05:59 05:59 05:59 Intake Total 800 5737 720 Balance 800 5737 720 - Physical Exam Constitutional: no apparent distress Eyes: PERRL Ears, Nose, Mouth, Throat: moist mucous membranes Cardiovascular: regular rate and rhythym Respiratory: no respiratory distress Gastrointestinal: normoactive bowel sounds, other (soft, +lower abdominal TTP without r/r/g, +BS) Skin: warm Musculoskeletal: full muscle strength Neurologic: AAOx3 Psychiatric: interacting appropriately ICD10 Worksheet Patient Problems: Problems Problem Status Onset Abdominal pain Acute Diarrhea Acute Leukocytosis Acute Endometriosis of pelvic peritoneum Acute
[2018-06-05] MEDS: KETOROLAC 15 MG/1 ML SDV IVP SCH ×3 (12:11→23:45)
[2018-06-05] MEDS: HYDROmorphONE/DILAUDID 1 MG/ML INJ IVP PRN (12:12)
[2018-06-05] MEDS: PROCHLORPERAZINE MALEATE 10 MG TAB PO PRN (18:06)
[2018-06-06] MEDS: VANCOMYCIN 125 MG/2.5 ML UDL PO SCH ×3 (05:07→16:47)
[2018-06-06] MEDS: KETOROLAC 15 MG/1 ML SDV IVP SCH ×3 (05:07→16:56)
[2018-06-06] MEDS: oxyCODONE IR 5 MG TAB PO PRN ×4 (05:30→12:31)
[2018-06-06] MEDS: PROCHLORPERAZINE MALEATE 10 MG TAB PO PRN ×2 (05:32→12:18)
[2018-06-06] MEDS: FLUTICASONE HFA 110 MCG MDI IH SCH (08:50)
[2018-06-06 15:18] VITALS: BP 125/80
--- NOTE | 2018-06-06 16:27 | PDDCSUM ---
Discharge Summary Discharge Summary: Date of Admission: 06/02/2018 Date of Discharge: 06/06/2018 Studies: CTA chest, CT abdomen w/contrast Discharge Diagnoses: 1. C diff colitis 2. Chest wall pain, no PE on CTA 3. H/o endometriosis s/p recent robotic surgery 4. Migraine headaches 5. Reactive airways disease Brief Hospital Course: 32yo F who underwent robotic excision of extensive endometriosis on 05/01/2018 presented with abdominal pain, loose stools, and fever. She had just recently completed a roughly 3 week course of antibiotics (augmentin and clindamycin) for an "inflammatory process in the pelvis" that had been noted on a prior CT. Shortly after completing these antibiotics she developed watery diarrhea. She tested positive for C diff and was started on treatment with significant improvement. She was having minimal loose stools and tolerating PO at time of discharge. She was still having intermittent abdominal pain and nausea and was discharged with a small supply of oxycodone. I did children counselor her on the risks of opioids and strongly advised to discontinue as soon as symptoms were improved. Medications: Please refer to EMR for complete list. I sent prescription for PO vancomycin 125mg QID for 10 more days. I refilled her phenergan and wrote a prescription for oxycodone 5mg q6h PRN #20 with 0 refills as well as levsin 0.125mg q6h PRN. I stopped her aspirin. Follow Up Plan: 1. She plans to establish with a primary care provider Physical Exam: Vitals reviewed, afebrile. Alert and oriented, rrr, lungs clear, abdomen soft and nt, no leg edema, no rashes.
[2018-06-06] MEDS ORDERED: NAPROXEN SODIUM 220 MG TAB PO PRN (16:53)
--- NOTE | 2018-06-06 16:58 | ASDISCHSUM ---
Discharge Information Plan Status:Home with No Needs Medically Cleared to Leave: Discharge Date: CM D/C Disposition:Home, Routine, Self-Care ADT D/C Disposition:Home, Routine, Self-Care Projected Discharge Date: Transportation at D/C: Discharge Delay Reason: Follow-Up Date: Discharge Slot: Final Diagnosis: Placement Information Patient Contact Information Contact Name:REY Relationship: Address:[address] [place] [address] [id number] City:[facility] Phone: State/Zip Code:[place] [address] Email: Financial Information Financial Class:Medicaid Primary Plan Desc:[employer] [place] Primary Plan Number:[id number] Secondary Plan Desc: Secondary Plan Number: Assessment Information LACE LACE Length of stay for Answers: 3 days current admission Acuity / Level of Answers: Yes Care: Did the patient have an inpatient admission? Comorbidities - select Answers: Opioid dependence all that apply / Chronic pain # of Emergency department Answers: 5-8 visits in the last 6 months Score: 14 Date Signed: 06/06/2018 04:57 PM Electronically Signed By:Kandice Ritter RN [facility] CM Progress Note CM Note CM Note Notes: Patient admitted with abdominal pain, + for C-Diff. Per RN, patient has some concerns about her financial responsibility - I have requested that Financial Counseling call or come speak to patient about coverage. Anticipate patient will be able to d/c home independently CM available should further needs arise. Plan: Likely independent. Date Signed: 06/03/2018 11:41 AM Electronically Signed By:Kandice Ritter RN [facility] CM Progress Note CM Note CM Note Notes: Patient plan of care reviewed in am rounds. Generally healthy 32 year old female s/p evlevated WBC s/p surgery in April for PID. Patient developed C-Diff and is currently undergoing treatment. No needs identified at this time. CM available should needs arise. Plan: Dc indpendently when medically cleared to discharge. Date Signed: 06/04/2018 02:45 PM Electronically Signed By:Alida Casarez RN Intervention Information Intervention Type:*Incorrect Registration Date of Service:06/03/2018 09:30 AM Patient Type:Inpatient Staff Member:Shaylee Tovar Hours: Discipline: Severity: Comment:
== END 2018-06-06 18:50 | disposition home or self-care (01) | DRG 248 ==
LOC: INTOOBSV 17:20 → F1N 17:49 → OBSVTOIN 06-03 15:00
PROVIDERS: ADMIT Internal Medicine; ATTEND Internal Medicine
DX: A04.72 Enterocolitis due to Clostridium difficile, not specified as recurrent (principal); F41.9 Anxiety disorder, unspecified; R07.89 Other chest pain; Z98.890 Other specified postprocedural states; G43.909 Migraine, unspecified, not intractable, without status migrainosus; J45.909 Unspecified asthma, uncomplicated
CPT/HCPCS: 96374; G0378; J1170; J1200; J1885; J2060; J2270; J2550; J2920; Q9967

== ENCOUNTER → 2018-06-13 | Outpatient (CLI) | payer MEDICAID | LOC: FIMAGING 16:52 | PROVIDERS: ATTEND Registered Nurse | DX: R10.2 Pelvic and perineal pain (principal); R93.89 Abnormal findings on diagnostic imaging of other specified body structures; D25.9 Leiomyoma of uterus, unspecified; N83.201 Unspecified ovarian cyst, right side ==